=== PATIENT | male | born 1950 | race Caucasian/White ===

== ENCOUNTER 2017-02-17 15:28 | Inpatient (IN) | payer MEDICARE, OTHER ==
[~2017-02-17] VITALS: Ht 167.6 cm; Wt 99.8 kg
[2017-02-17] MEDS ORDERED: VANCOMYCIN 1 GM in IV D5W 250 ML IV ONE ×2 (16:00→18:30)
[2017-02-17] MEDS ORDERED: PIPERACILLIN /TAZOBACTAM 3.375 G in IV D5W 50 ML IV ONE (16:00)
[2017-02-17] MEDS ORDERED: HYDROMORPHONE 1 MG/1 ML DISP.SYRIN IV ONE (16:00)
[2017-02-17] MEDS ORDERED: ONDANSETRON HCL/PF 4 MG/2 ML VIAL IVP ONE (16:00)
[2017-02-17] MEDS ORDERED: IV NS 0.9% 1,000 ML BAG IV ONE ×2 (16:00→18:30)
--- NOTE | 2017-02-17 16:00 | NUR ---
AAOX3, [id number] FROM HOME: UNABLE TO CARE FOR SELF; MULTIPLE SKIN ULCERS/REDNESS;BURN TO L & R HANDS; FAILURE TO THRIVE; GENERALIZED BODY PAIN. RR IS EVEN AND UNLABORED WITH NAD NOTED. SKIN IS WARM AND DRY. DR NICOLAS AT FOR EVAL.
[2017-02-17 16:10] LABS: BASOPHILS % (AUTO) 0.1 % (0.0-2.0); EOSINOPHILS # (AUTO) 0.3 /CMM (0.0-0.7); EOSINOPHILS % (AUTO) 1.9 % (0.0-6.0); HEMATOCRIT 36 % (39-51); HEMOGLOBIN 11.8 g/dL (13.5-17.5); LYMPHOCYTES # (AUTO) 0.8 /CMM (0.8-4.8); LYMPHOCYTES % (AUTO) 4.5 % (20.0-44.0); MEAN CORPUSCULAR HEMOGLOBIN 27 PG (26.0-33.0); MEAN CORPUSCULAR HGB CONC 33 g/dl (31.0-36.0); MEAN CORPUSCULAR VOLUME 82 fL (80-96); MONOCYTES # (AUTO) 0.8 /CMM (0.1-1.30); MONOCYTES % (AUTO) 4.9 % (2.0-12.0); NEUTROPHILS % (AUTO) 88.6 % (43.0-81.0); PLATELET COUNT (AUTO) 233 /CMM (150-450); RDW COEFFICIENT OF VARIATION 17.3 (11.5-15.0); RED BLOOD CELL COUNT(AUTO) 4.43 MIL/uL (4.5-6.0); WHITE BLOOD COUNT (AUTO) 16.9 K/uL (4.3-11.0)
[2017-02-17] MEDS ORDERED: ONDANSETRON HCL/PF 4 MG/2 ML VIAL ONE ×2 (16:17→19:56)
[2017-02-17] MEDS ORDERED: HYDROMORPHONE INJ 2 MG/ML DISP.SYRIN ONE (16:18)
[2017-02-17 16:27] LABS: INR 1.13 (0.87-1.13)
[2017-02-17 16:32] LABS: ALANINE AMINOTRANSFERASE 34 U/L (12-78); ALBUMIN 3.2 g/dL (3.4-5.0); ALKALINE PHOSPHATASE 187 U/L (46-116); ASPARTATE AMINOTRANSFERASE 18 U/L (15-37); BILIRUBIN,DIRECT 0.4 mg/dL (0.0-0.2); BILIRUBIN,TOTAL 1.1 mg/dL (0.2-1.0); CARBON DIOXIDE 18 mmol/L (21-32); CHLORIDE 106 mmol/L (98-107); CREATININE 1.4 mg/dL (0.6-1.3); GLUCOSE 146 mg/dL (74-106); SODIUM SERUM 137 mmol/L (136-145); TOTAL PROTEIN, SERUM 7.3 g/dL (6.4-8.2); UREA NITROGEN, BLOOD 19 mg/dL (7-18)
[2017-02-17 16:37] LABS: TROPONIN I < 0.017 ng/mL (0.00-0.056)
[2017-02-17] MEDS ORDERED: FAMO20TA8 PO (16:51)
[2017-02-17] MEDS ORDERED: IBUP-1955 PO (16:51)
[2017-02-17] MEDS ORDERED: BISA5TAB10 PO (16:51)
[2017-02-17] MEDS ORDERED: DIGO125T PO (16:51)
[2017-02-17] MEDS ORDERED: MUPI22OI2 TP (16:51)
[2017-02-17] MEDS ORDERED: FURO20TA4 PO (16:51)
[2017-02-17] MEDS ORDERED: TAMS-12 PO (16:51)
[2017-02-17] MEDS ORDERED: ALBU18HF2 IH (16:51)
[2017-02-17] MEDS ORDERED: WARF3TAB6 PO (16:51)
[2017-02-17] MEDS ORDERED: HYDR-4077 PO (16:51)
[2017-02-17] MEDS ORDERED: APIX5TAB PO (16:51)
[2017-02-17] MEDS ORDERED: CARV6.252 PO (16:51)
[2017-02-17] MEDS ORDERED: ATOR10TA PO (16:51)
[2017-02-17] MEDS ORDERED: POTA10TA15 PO (16:51)
[2017-02-17] MEDS ORDERED: CLOP75TA15 PO (16:51)
[2017-02-17] MEDS ORDERED: ZOLP10TA6 PO (16:51)
[2017-02-17] MEDS ORDERED: AMLO10TA2 PO (16:52)
[2017-02-17] MEDS ORDERED: ASPI-1169 PO (16:52)
[2017-02-17] MEDS ORDERED: GABA-534 PO (16:52)
[2017-02-17] MEDS ORDERED: LISI40TA4 PO (16:52)
[2017-02-17] MEDS ORDERED: INSU300I SQ (16:52)
[2017-02-17] MEDS ORDERED: ISOS20TA6 PO (16:52)
[2017-02-17] MEDS ORDERED: IPRA3AMP IH (16:52)
[2017-02-17] MEDS ORDERED: GLIM4TAB2 PO (16:52)
[2017-02-17] MEDS ORDERED: ERGO500014 PO (16:52)
--- NOTE | 2017-02-17 17:01 | NUR ---
DR CASSIDY WAS PAGED
[2017-02-17] MEDS ORDERED: CLINDAMYCIN 600 MG in IV D5W 100 ML IV ONE (17:30)
[2017-02-17] MEDS ORDERED: INSULIN REGULAR, HUMAN 100 UNIT/ML 3 ML VIAL SQ PRN (18:30)
[2017-02-17] MEDS ORDERED: DEXTROSE 50%-WATER 50 ML DISP.SYRIN IV PRN (18:30)
[2017-02-17] MEDS ORDERED: ONDANSETRON HCL/PF 4 MG/2 ML VIAL IVP PRN (18:30)
[2017-02-17] MEDS ORDERED: BISACODYL (5 MG) 5 MG TABLET.DR PO PRN (18:30)
[2017-02-17] MEDS: BLOOD SUGAR DIAGNOSTIC 1 EACH STRIP VI SCH ×2 (19:30→22:24)
[2017-02-17] MEDS ORDERED: MORPHINE SULFATE INJ 4 MG/ML DISP.SYRIN ONE (19:57)
[2017-02-17] MEDS: MORPHINE SULFATE INJ 2 MG/ML DISP.SYRIN IV PRN (20:02)
--- NOTE | 2017-02-17 20:05 | NUR ---
PATIENT SCREAMING CAUSE OF PAIN AND SAID HIS PAIN IS 10/10. VSS. MEDICATED PATIENT AT THIS TIME WITH MORPHINE AND ZOFRAN ORDERED. COMFORT MEASURES RENDERED. WILL CONTINUE TO MONITOR.
[2017-02-17] MEDS ORDERED: PANTOPRAZOLE 40 MG VIAL ONE (20:54)
[2017-02-17] MEDS ORDERED: CLINDAMYCIN 900 MG in IV D5W 100 ML IV SCH (21:00)
[2017-02-17] MEDS: PANTOPRAZOLE 40 MG VIAL IV SCH (22:00)
[2017-02-17] MEDS ORDERED: INSULIN REGULAR, HUMAN 100 UNIT/ML 10 ML VIAL ONE (22:26)
[2017-02-17] MEDS: *INSULIN REGULAR(HUMULIN R)HUM 100 UNIT/ML VIAL SQ PRN (22:49)
--- NOTE | 2017-02-17 23:11 | NUR ---
SPOKE WITH DR ALMANZAR AND REPORTED STATUS OF PATIENT BEING AGITATED/ANXIOUS. PATIENT IS RESTLESS, SCREAMING AND CRYING AND TELLING ME THAT HE IS "AFRAID TO . MY JUST FEW WEEKS AGO." RECEIVED ORDERS FROM DR ALMANZAR, WILL CARRY OUT.
--- NOTE | 2017-02-17 23:13 | NUR ---
NONADMIN VANCO PER DR ALMANZAR SINCE VANCO 1GM WAS GIVEN [address] ALMANZAR SAID, LET PHARMACY RESCHEDULE IT.
[2017-02-17] MEDS ORDERED: ZOLPIDEM TARTRATE 10 MG TABLET ONE (23:14)
[2017-02-17] MEDS: ZOLPIDEM TARTRATE 5 MG TABLET PO PRN (23:19)
[2017-02-18] MEDS ORDERED: MORPHINE SULFATE INJ 4 MG/ML DISP.SYRIN ONE ×2 (01:06→11:51)
[2017-02-18] MEDS: MORPHINE SULFATE INJ 2 MG/ML DISP.SYRIN IV PRN ×2 (01:10→12:01)
[2017-02-18] MEDS ORDERED: CLINDAMYCIN 900 MG/6 ML VIAL ONE (01:19)
[2017-02-18] MEDS: ALBUTEROL SULFATE 8 GM HFA.AER.AD IH SCH ×2 (01:20→07:13)
[2017-02-18] MEDS ORDERED: LORAZEPAM 1 MG TABLET ONE ×2 (02:08→11:50)
[2017-02-18] MEDS: LORAZEPAM 1 MG TABLET PO PRN ×3 (02:25→21:36)
[2017-02-18 06:26] LABS: BASOPHILS % (AUTO) 0.1 % (0.0-2.0); EOSINOPHILS # (AUTO) 0.3 /CMM (0.0-0.7); EOSINOPHILS % (AUTO) 1.3 % (0.0-6.0); HEMATOCRIT 33 % (39-51); LYMPHOCYTES # (AUTO) 0.9 /CMM (0.8-4.8); LYMPHOCYTES % (AUTO) 4.1 % (20.0-44.0); MEAN CORPUSCULAR HEMOGLOBIN 28 PG (26.0-33.0); MEAN CORPUSCULAR HGB CONC 33 g/dl (31.0-36.0); MEAN CORPUSCULAR VOLUME 83 fL (80-96); MONOCYTES # (AUTO) 0.7 /CMM (0.1-1.30); NEUTROPHILS # (AUTO) 19.9 /CMM (1.8-8.9); NEUTROPHILS % (AUTO) 91.5 % (43.0-81.0); PLATELET COUNT (AUTO) 208 /CMM (150-450); RDW COEFFICIENT OF VARIATION 18.8 (11.5-15.0); RED BLOOD CELL COUNT(AUTO) 3.98 MIL/uL (4.5-6.0); WHITE BLOOD COUNT (AUTO) 21.7 K/uL (4.3-11.0)
[2017-02-18 06:45] LABS: BILIRUBIN,TOTAL 1.1 mg/dL (0.2-1.0); CALCIUM, SERUM 8.5 mg/dL (8.5-10.1); CREATININE 1.6 mg/dL (0.6-1.3); POTASSIUM 4.1 mmol/L (3.5-5.1)
[2017-02-18 06:54] LABS: CREATINE KINASE MB 4.7 ng/mL (0-3.6)
--- NOTE | 2017-02-18 06:58 | NUR ---
PATIENT REMAINED ALERT AND RESPONSIVE. VSS. COMFORT MEASURES RENDERED. PAIN MANAGEMENT IN PLACE. PATIENT WAS ABLE TO SLEEP FOR 4 HOURS. ALL NEEDS ATTENDED.
[2017-02-18 07:07] LABS: INR 1.19 (0.87-1.13)
[2017-02-18] MEDS: BLOOD SUGAR DIAGNOSTIC 1 EACH STRIP VI SCH ×4 (07:14→21:32)
--- NOTE | 2017-02-18 07:29 | NUR ---
REPORT GIVEN TO INDIRA LARSON FOR RAGHAVENDRA.
[2017-02-18] MEDS ORDERED: CLINDAMYCIN 900 MG in IV D5W 100 ML IV SCH (10:00)
--- NOTE | 2017-02-18 10:06 | NUR ---
DR CASSIDY AT , MADE AWARE RE: PLAVIX AND ELIQUIS WITH NEW ORDER TO CONT. MEDICATION FOR NOW AND F/U WITH DR. BECKER AFTER CONSULT. NPO STATUS EXCEPT MEDS, MAY [facility]/REG. DIET IF CLEARED BY CARDIO. PRIMARY NURSE MADE AWARE.
[2017-02-18] MEDS ORDERED: CARVEDILOL 6.25 MG TABLET ONE (10:27)
[2017-02-18] MEDS ORDERED: CLOPIDOGREL BISULFATE 75 MG TABLET ONE (10:27)
[2017-02-18] MEDS: PANTOPRAZOLE 40 MG VIAL IV SCH (10:55)
[2017-02-18] MEDS: ATORVASTATIN 10 MG TABLET PO SCH (10:58)
[2017-02-18] MEDS: CARVEDILOL 6.25 MG TABLET PO SCH ×2 (10:58→17:44)
[2017-02-18] MEDS ORDERED: VANCOMYCIN 1.25 GM in IV D5W 500 ML IV SCH ×2 (11:00→16:00)
[2017-02-18] MEDS: APIXABAN 5 MG TABLET PO SCH (11:00)
[2017-02-18] MEDS: ASPIRIN 81 MG TAB.CHEW PO SCH (11:02)
[2017-02-18] MEDS: ISOSORBIDE MONONITRATE 20 MG TABLET PO SCH ×2 (11:03→17:43)
[2017-02-18] MEDS: CLOPIDOGREL BISULFATE 75 MG TABLET PO SCH (11:03)
[2017-02-18 11:11] LABS: THYROID STIMULATING HORMONE 7.021 uIU/mL (0.358-3.74)
[2017-02-18] MEDS ORDERED: FEE PK DOSING 1 MIN EA MC ONE (14:05)
--- NOTE | 2017-02-18 14:57 | NUR ---
REPORT GIVEN TO NEO QUEZADA FOR RAGHAVENDRA 117-2
--- NOTE | 2017-02-18 15:00 | NUR ---
COMMERCIAL REAL ESTATE ASSOCIATEREPORTING CONSULTANT NOTES RECEIVED PT FROM ER NURSE PRIOR TO REPORT GIVEN. PT IS A/O X2. NO SOB AT THIS TIME. BREATHING IS EVEN AND UNLABORED. PT STATES THAT HE IS IN PAIN. WILL ADMINISTER PRN MEDICATION WHEN DUE. COLOSTOMY NOTED. BA EMPTY AT THIS TIME. MULTIPLE INJURIES NOTED ON PT'S UPPER AND LOWER EXTREMITIES. PT IS REFUSING ADMISSION PICTURES AT THIS TIME. HE IS ALSO REFUSING TELE MONITORING LEADS. DR. CASSIDY NOTIFIED AND STATES "OK". NO ORDERS OF NOW. BED IN LOW LOCKED POSITION, SIDE RAILS UP X3, CALL LIGHT WITHIN REACH. WILL CONTINUE TO MONITOR
[2017-02-18] MEDS: DIGOXIN 0.125 MG TABLET PO SCH (16:20)
[2017-02-18] MEDS: MORPHINE SULFATE INJ 4 MG/ML DISP.SYRIN IV PRN ×2 (16:20→21:36)
[2017-02-18] MEDS: *INSULIN REGULAR(HUMULIN R)HUM 100 UNIT/ML VIAL SQ PRN (17:41)
[2017-02-18] MEDS: FUROSEMIDE 40 MG/4 ML VIAL IV SCH (17:43)
[2017-02-18] MEDS: FERROUS SULFATE (325 MG) 325 MG/TAB TABLET PO SCH (17:43)
[2017-02-18] MEDS: ACETAMINOPHEN 325 MG TABLET PO PRN (17:54)
[2017-02-18] MEDS: ALBUTEROL FS 2.5 MG/3 ML VIAL.NEB NEB SCH (19:30)
[2017-02-18 20:00] VITALS: BP_SYST 105; BP_SYST 80; BP_DIAS 50; BP_DIAS 60
--- NOTE | 2017-02-18 20:00 | NUR ---
MACHINE VENEER REPAIRER NOTES PER RESPIRATORY THERAPIST, PT IS REFUSING SCHEDULED BREATHING TX. RESPIRATORY THERAPIST STATES THAT HE WILL PUT "PT REFUSED" IN EMAR
--- NOTE | 2017-02-18 21:08 | NUR ---
TRENCH SHOVEL OPERATOR NOTES PER RN SUPERVISOR WELDING EQUIPMENT REPAIRER, PT WAS DOWNGRADED TO TELE THIS MORNING PRIOR TO ADMISSION DESPITE THE ADMIT TO ICU ORDER.
[2017-02-18] MEDS: TAMSULOSIN 0.4 MG CAP.SR.24H PO SCH (21:35)
[2017-02-18] MEDS: CEFAZOLIN 1 GM in IV NS 0.9% 50 ML IV SCH (21:43)
--- NOTE | 2017-02-18 22:36 | NUR ---
ASSISTANT TO THE CEO CLOSING NOTES PT REMAINS STABLE SINCE ADMISSION. HE WAS ABLE TO VERBALIZE NEEDS. WOUND AND SKIN CARE RENDERED. IV REMAINS PATENT AND INTACT. COLOSTOMY BAG EMPTIED AND CHANGED. VITALS STABLE AT THIS TIME. ALL NEEDS MET DURING SHIFT AND ORDERS CARRIED OUT ACCORDINGLY. WILL ENDORSE TO NIGHTSHIFT NURSE FOR RAGHAVENDRA
--- NOTE | 2017-02-18 22:54 | NUR ---
POT RUNNER NOTES INFORMED DR. ALMANZAR PATIENT REFUSED TELE BOX DESPITE EXPLANATION THE NEED FOR THE TELE MONITOR. NNO. WILL CONTINUE TO MONITOR.
[2017-02-19] VITALS: BP 118/66
[2017-02-19] MEDS: ALBUTEROL FS 2.5 MG/3 ML VIAL.NEB NEB SCH ×4 (01:30→19:30)
[2017-02-19 04:00] VITALS: BP 119/70
[2017-02-19] MEDS: MORPHINE SULFATE INJ 4 MG/ML DISP.SYRIN IV PRN ×5 (04:04→22:22)
[2017-02-19] MEDS: CEFAZOLIN 1 GM in IV NS 0.9% 50 ML IV SCH ×3 (05:39→21:16)
[2017-02-19 06:54] LABS: EOSINOPHILS # (AUTO) 0.3 /CMM (0.0-0.7); EOSINOPHILS % (AUTO) 1.7 % (0.0-6.0); HEMATOCRIT 32 % (39-51); HEMOGLOBIN 10.4 g/dL (13.5-17.5); LYMPHOCYTES # (AUTO) 0.4 /CMM (0.8-4.8); LYMPHOCYTES % (AUTO) 1.9 % (20.0-44.0); MEAN CORPUSCULAR HEMOGLOBIN 27 PG (26.0-33.0); MEAN CORPUSCULAR HGB CONC 33 g/dl (31.0-36.0); MEAN CORPUSCULAR VOLUME 83 fL (80-96); MONOCYTES # (AUTO) 0.6 /CMM (0.1-1.30); MONOCYTES % (AUTO) 3.2 % (2.0-12.0); NEUTROPHILS # (AUTO) 18.7 /CMM (1.8-8.9); NEUTROPHILS % (AUTO) 93.2 % (43.0-81.0); PLATELET COUNT (AUTO) 182 /CMM (150-450); RED BLOOD CELL COUNT(AUTO) 3.82 MIL/uL (4.5-6.0)
[2017-02-19 07:01] LABS: CALCIUM, SERUM 8.3 mg/dL (8.5-10.1); CREATININE 1.8 mg/dL (0.6-1.3); MAGNESIUM 1.9 mg/dL (1.8-2.4); PHOSPHORUS 3.6 mg/dL (2.5-4.9); POTASSIUM 3.6 mmol/L (3.5-5.1)
[2017-02-19 08:00] VITALS: BP 104/60
--- NOTE | 2017-02-19 08:00 | NUR ---
GRAPHICS SOFTWARE ENGINEER NOTES RECEIVED PT ON BED SLEEPING WITH EPISODES OF CONFUSION. WITH COLOSTOMY BAD NO SIGN OF REDNESS OR INFECTION. IV ACCESS LAC 20G NO SIGN OF PAIN OR INFILTRATION. HEAD OF BED ELEVATED. SIDE RAILS UP. BED ALARM IS ON. WILL CONTINUE TO MONITOR PT CLOSELY.
[2017-02-19] MEDS: BLOOD SUGAR DIAGNOSTIC 1 EACH STRIP VI SCH ×4 (08:08→21:16)
[2017-02-19] MEDS: *INSULIN REGULAR(HUMULIN R)HUM 100 UNIT/ML VIAL SQ PRN ×3 (08:10→21:20)
--- NOTE | 2017-02-19 08:25 | NUR ---
RT PATIENT REFUSED TX AT THIS TIME. EXPLAINED RISKS AND BENEFITS. NO SOB NOTED.
[2017-02-19] MEDS: CLOPIDOGREL BISULFATE 75 MG TABLET PO SCH (09:09)
[2017-02-19] MEDS: ISOSORBIDE MONONITRATE 20 MG TABLET PO SCH ×2 (09:10→16:34)
[2017-02-19] MEDS: CARVEDILOL 6.25 MG TABLET PO SCH ×2 (09:10→16:35)
[2017-02-19] MEDS: ATORVASTATIN 10 MG TABLET PO SCH (09:10)
[2017-02-19] MEDS: FUROSEMIDE 40 MG/4 ML VIAL IV SCH ×2 (09:11→16:34)
[2017-02-19] MEDS: ASPIRIN 81 MG TAB.CHEW PO SCH (09:11)
[2017-02-19] MEDS: PANTOPRAZOLE 40 MG VIAL IV SCH (09:11)
[2017-02-19] MEDS: FERROUS SULFATE (325 MG) 325 MG/TAB TABLET PO SCH (09:11)
[2017-02-19] MEDS: APIXABAN 5 MG TABLET PO SCH (09:12)
--- NOTE | 2017-02-19 12:18 | NUR ---
PT. REFUSED FOR CXR, INFORMED DR. YANEZ.
[2017-02-19] MEDS: DIGOXIN 0.125 MG TABLET PO SCH (12:43)
--- NOTE | 2017-02-19 14:00 | NUR ---
RT PATIENT REFUSED TX AT THIS TIME. PATIENT REMOVES NASAL CANNULA AT OWN DISCRETION. EXPLAINED RISKS AND BENEFITS. NO SOB NOTED.
[2017-02-19] MEDS: SOD FERRIC GLUC 125 MG in IV NS 0.9% 100 ML IV SCH (14:50)
--- NOTE | 2017-02-19 15:22 | NUR ---
MS RN NOTES RADIOLOGY CALLED REGARDING FOR CLOT ON THE RIGHT FEMORAL VEIN. NOTIFIED DR CASSIDY REGARDING THE IMAGING RESULTS.
[2017-02-19 16:00] VITALS: BP 110/69
[2017-02-19] MEDS: ACETAMINOPHEN 325 MG TABLET PO PRN (16:34)
[2017-02-19 20:00] VITALS: BP 143/56
[2017-02-19] MEDS: TAMSULOSIN 0.4 MG CAP.SR.24H PO SCH (21:16)
--- NOTE | 2017-02-19 22:16 | NUR ---
MS RN NOTES ENDORSED TO THE PM NURSE. DUE MEDS GIVEN. PROVIDED COMFORT. NO CHANGE OF CONDITION NOTED DURING THE SHIFT.
--- NOTE | 2017-02-19 23:00 | NUR ---
RN INITIAL NOTES RECEIVED PT IN BED SHOUTING WITH EPISODES OF CONFUSION. WITH COLOSTOMY, NO SIGN OF REDNESS OR INFECTION. IV ACCESS LAC 20G NO SIGN OF PAIN OR INFILTRATION. HEAD OF BED ELEVATED. SIDE RAILS UP. BED ALARM IS ON. WILL CONTINUE TO MONITOR PT CLOSELY.
[2017-02-20] VITALS: BP 143/56
[2017-02-20] MEDS: ZOLPIDEM TARTRATE 5 MG TABLET PO PRN ×2 (00:42→21:50)
[2017-02-20] MEDS: ALBUTEROL FS 2.5 MG/3 ML VIAL.NEB NEB SCH ×4 (01:30→13:05)
[2017-02-20 04:00] VITALS: BP 120/74
[2017-02-20] MEDS: CEFAZOLIN 1 GM in IV NS 0.9% 50 ML IV SCH ×3 (04:47→21:51)
--- NOTE | 2017-02-20 06:55 | NUR ---
RN CLOSING NOTES PT IN BED. COLOSTOMY BAG WAS CHANGED , NO SIGN OF REDNESS OR INFECTION. IV ACCESS LAC 20G NO SIGN OF PAIN OR INFILTRATION. HEAD OF BED ELEVATED. SIDE RAILS UP. BED ALARM IS ON.CALL LIGHT WITH IN REACH. WILL ENDORSE TO AM RN.
[2017-02-20 07:52] LABS: EOSINOPHILS # (AUTO) 0.4 /CMM (0.0-0.7); EOSINOPHILS % (AUTO) 1.8 % (0.0-6.0); HEMATOCRIT 31 % (39-51); HEMOGLOBIN 10.2 g/dL (13.5-17.5); LYMPHOCYTES # (AUTO) 0.4 /CMM (0.8-4.8); LYMPHOCYTES % (AUTO) 1.7 % (20.0-44.0); MEAN CORPUSCULAR HEMOGLOBIN 27 PG (26.0-33.0); MEAN CORPUSCULAR HGB CONC 33 g/dl (31.0-36.0); MEAN CORPUSCULAR VOLUME 83 fL (80-96); MONOCYTES # (AUTO) 0.9 /CMM (0.1-1.30); MONOCYTES % (AUTO) 3.9 % (2.0-12.0); NEUTROPHILS # (AUTO) 21.1 /CMM (1.8-8.9); NEUTROPHILS % (AUTO) 92.6 % (43.0-81.0); PLATELET COUNT (AUTO) 161 /CMM (150-450); RDW COEFFICIENT OF VARIATION 19.5 (11.5-15.0); RED BLOOD CELL COUNT(AUTO) 3.73 MIL/uL (4.5-6.0); WHITE BLOOD COUNT (AUTO) 22.7 K/uL (4.3-11.0)
[2017-02-20] MEDS: BLOOD SUGAR DIAGNOSTIC 1 EACH STRIP VI SCH ×4 (07:54→22:37)
[2017-02-20 08:00] VITALS: BP 126/64
--- NOTE | 2017-02-20 08:00 | NUR ---
MS1/RN AM SHIFT INITIAL NOTES RECEIVED PT AWAKE SITTING IN BED, PT A/O X 2-3, COMPLAINT OF GENERALIZED PAIN RATED 9/10. ON 2L O2 VIA N/C SATURATING @ 98%, LUNG SOUNDS CLEAR. IV SITE FLUSHED, PATENT WITH NO S/S OF INFECTION, SL. PT'S RIGHT HAND DRESSING INTACT, PER PT HE BURNED HIS HAND WHEN HE WAS COOKING AT HOME. BS CHECKED, RESULT 167, PT TO BE GIVEN 3 UNITS OF REGULAR INSULIN SC, NO S/S OF HYPERGLYCEMIA. SCHEDULED AM MEDS TO BE GIVEN. CL WITHIN REACHED AND SAFETY MAINTAINED. ON GOING MONITORING.
--- NOTE | 2017-02-20 08:08 | NUR ---
RT PATIENT IS AWAKE/ALERT. PATIENT REFUSED TX AND 02 AT THIS TIME. EXPLAINED RISKS AND BENEFITS. NO SOB NOTED.
[2017-02-20] MEDS: APIXABAN 5 MG TABLET PO SCH (08:26)
[2017-02-20] MEDS: ATORVASTATIN 10 MG TABLET PO SCH (08:27)
[2017-02-20] MEDS: ASPIRIN 81 MG TAB.CHEW PO SCH (08:27)
[2017-02-20] MEDS: ISOSORBIDE MONONITRATE 20 MG TABLET PO SCH ×2 (08:27→16:50)
[2017-02-20] MEDS: FUROSEMIDE 40 MG/4 ML VIAL IV SCH (08:28)
[2017-02-20] MEDS: CARVEDILOL 6.25 MG TABLET PO SCH ×2 (08:28→16:50)
[2017-02-20] MEDS: MORPHINE SULFATE INJ 4 MG/ML DISP.SYRIN IV PRN (08:29)
[2017-02-20] MEDS: PANTOPRAZOLE 40 MG VIAL IV SCH (08:29)
[2017-02-20] MEDS: CLOPIDOGREL BISULFATE 75 MG TABLET PO SCH (08:31)
[2017-02-20] MEDS: *INSULIN REGULAR(HUMULIN R)HUM 100 UNIT/ML VIAL SQ PRN ×3 (08:32→21:56)
[2017-02-20 08:37] LABS: CALCIUM, SERUM 7.9 mg/dL (8.5-10.1); CREATININE 1.8 mg/dL (0.6-1.3); MAGNESIUM 1.7 mg/dL (1.8-2.4); PHOSPHORUS 3.1 mg/dL (2.5-4.9); POTASSIUM 3.6 mmol/L (3.5-5.1)
[2017-02-20] MEDS ORDERED: Magnesium 1GM/D5W 100ML PREMIX 100 ML IV SCH (11:15)
--- NOTE | 2017-02-20 11:30 | NUR ---
MS1/AGRICULTURE WORKER CONSULT PT SEEN & EXAMINED BY KAROLINA BAINS FOR WOUND CARE. NO NEW ORDERS RECEIVED AT THIS TIME.
[2017-02-20] MEDS: HYDROMORPHONE INJ 2 MG/ML DISP.SYRIN IV PRN ×2 (12:19→20:01)
[2017-02-20] MEDS: DIGOXIN 0.125 MG TABLET PO SCH (12:20)
--- NOTE | 2017-02-20 13:05 | NUR ---
RT PATIENT REFUSED TX AT THIS TIME. PATIENT ON NASAL CANNULA @ 28%. EXPLAINED RISKS AND BENEFITS. PATIENT STABLE.
[2017-02-20 13:24] LABS: BAND % (MANUAL) 4 % (0.0-5.0); LYMPHOCYTES % (MANUAL) 3 % (16-48); MONOCYTES % (MANUAL) 5 % (0-11.0); NEUTROPHILS % (MANUAL) 88 (42-76)
[2017-02-20] MEDS: SOD FERRIC GLUC 125 MG in IV NS 0.9% 100 ML IV SCH (14:37)
[2017-02-20] MEDS ORDERED: Z GUARD REMEDY 4 OZ OINT TP PRN (15:30)
[2017-02-20 16:00] VITALS: BP 122/66
--- NOTE | 2017-02-20 19:31 | NUR ---
MS1/RN AM SHIFT END NOTES NO ACUTE CHANGE OF CONDITION NOTED DURING THE SHIFT. ALL NEEDS MET. PT ENDORSED TO PM NURSE TO CONTINUE CARE. CL WITHIN REACHED AND SAFETY MAINTAINED.
[2017-02-20 20:00] VITALS: BP 104/53
[2017-02-20] MEDS: CADEXOMER IODINE 40 GM TUBE TP SCH (21:00)
[2017-02-20] MEDS: NEOMY SULF/BACITRAC ZN/POLY 15 GM TUBE TP SCH (21:49)
[2017-02-20] MEDS: LORAZEPAM 1 MG TABLET PO PRN (21:49)
[2017-02-20] MEDS: TAMSULOSIN 0.4 MG CAP.SR.24H PO SCH (21:50)
[2017-02-21] MEDS: ALBUTEROL FS 2.5 MG/3 ML VIAL.NEB NEB SCH ×4 (00:53→19:30)
[2017-02-21] MEDS: HYDROMORPHONE INJ 2 MG/ML DISP.SYRIN IV PRN ×4 (03:47→22:41)
[2017-02-21 04:00] VITALS: BP 104/52
[2017-02-21] MEDS: CEFAZOLIN 1 GM in IV NS 0.9% 50 ML IV SCH ×2 (05:45→12:04)
--- NOTE | 2017-02-21 07:30 | NUR ---
MS RN OPENING RECEIVED PATIENT A.OX2-3 PERIODS OF CONFUSION AND FORGETFULNESS. PATIENT YELLING OUT OF ROOM FOR BREAKFAST. NOTIFIED WHEN TRAYS COME. PATIENT CONTINUES TO YELL AGAIN ONCE I LEAVE THE ROOM AND REMINDED PATIENT WHAT TIME BREAKFAST TRAYS COME. PATIENT COLOSTOMY BAG FULL; WILL CHANGE. PATIENT DENIES SOB, DIFFICULTY BREATHING AND STATES PAIN PRESENT "ALL OVER" AND WANTS DILAUDID. ADVISED PATIENT WHEN PAIN MEDICATION DUE. WHEN I LEAVE THE ROOM AND ENTER A FEW MINUTES LATER PATIENT IS SLEEPING COMFORTABLY NO S/S PAIN. PATIENT TOOK GOWN OFF AND THREW LINENS ON FLOOR STATING HE WAS WARM. PATIENT APPEARS STABLE AT THIS TIME. WILL ROUND PRN NEEDED. BED LOWERED AND LOCKED, RAILS UPX3 FOR SAFETY AND BED ALARM ON. PATIENT ATTEMPTED TO GET OUT OF BED PER RN LAST NIGHT, NOTIFIED SOON STRAW HAT MACHINE OPERATOR PATIENT HIGH ACUITY AND POSSIBLY NEEDS SITTER. WILL KEEP CLOSE EYE ON PATIENT. EDUCATED ON FALL RISKS AND PRECAUTIONS. ALL NEEDS IN REACH. AND ALL NEEDS ASSESSED.
[2017-02-21 07:52] LABS: EOSINOPHILS % (AUTO) 0.1 % (0.0-6.0); HEMATOCRIT 32 % (39-51); HEMOGLOBIN 10.4 g/dL (13.5-17.5); LYMPHOCYTES # (AUTO) 0.3 /CMM (0.8-4.8); LYMPHOCYTES % (AUTO) 1.1 % (20.0-44.0); MEAN CORPUSCULAR HEMOGLOBIN 27 PG (26.0-33.0); MEAN CORPUSCULAR HGB CONC 33 g/dl (31.0-36.0); MEAN CORPUSCULAR VOLUME 83 fL (80-96); MONOCYTES # (AUTO) 0.6 /CMM (0.1-1.30); MONOCYTES % (AUTO) 2.4 % (2.0-12.0); NEUTROPHILS # (AUTO) 26.1 /CMM (1.8-8.9); NEUTROPHILS % (AUTO) 96.4 % (43.0-81.0); PLATELET COUNT (AUTO) 167 /CMM (150-450); RDW COEFFICIENT OF VARIATION 19.3 (11.5-15.0); RED BLOOD CELL COUNT(AUTO) 3.81 MIL/uL (4.5-6.0); WHITE BLOOD COUNT (AUTO) 27.1 K/uL (4.3-11.0)
[2017-02-21 08:00] VITALS: BP 119/68
[2017-02-21 08:14] LABS: CALCIUM, SERUM 8.1 mg/dL (8.5-10.1); CREATININE 1.7 mg/dL (0.6-1.3); MAGNESIUM 1.8 mg/dL (1.8-2.4); PHOSPHORUS 3.2 mg/dL (2.5-4.9); POTASSIUM 3.5 mmol/L (3.5-5.1)
[2017-02-21 08:16] LABS: PREALBUMIN 9.1 MG/DL (18.0-35.7)
--- NOTE | 2017-02-21 08:29 | NUR ---
WOUND CARE CONSULT WOUND CARE RECEIVED WOUND CONSULT. WOUND CARE WILL DEFER CONSULT AND ALL TREATMENT PLANS TO SURGICAL TEAM AT THIS TIME. PATIENT WITH FLORINA AT 13, ALL PRESSURE ULCER PREVENTION MEASURES NOTED TO BE IN PLACE. PRESSURE ULCER STAGING DONE BY SURGICAL TEAM.
[2017-02-21] MEDS: PANTOPRAZOLE 40 MG VIAL IV SCH (08:49)
[2017-02-21] MEDS: BLOOD SUGAR DIAGNOSTIC 1 EACH STRIP VI SCH ×4 (08:49→21:59)
[2017-02-21] MEDS: CADEXOMER IODINE 40 GM TUBE TP SCH ×4 (08:50→21:37)
[2017-02-21] MEDS: CLOPIDOGREL BISULFATE 75 MG TABLET PO SCH (08:51)
[2017-02-21] MEDS: ATORVASTATIN 10 MG TABLET PO SCH (08:52)
[2017-02-21] MEDS: ASPIRIN 81 MG TAB.CHEW PO SCH (08:52)
[2017-02-21] MEDS: CARVEDILOL 6.25 MG TABLET PO SCH ×2 (08:52→16:58)
[2017-02-21] MEDS: NEOMY SULF/BACITRAC ZN/POLY 15 GM TUBE TP SCH ×3 (08:52→21:38)
[2017-02-21] MEDS: ISOSORBIDE MONONITRATE 20 MG TABLET PO SCH ×2 (08:52→16:57)
[2017-02-21] MEDS: APIXABAN 5 MG TABLET PO SCH (08:54)
--- NOTE | 2017-02-21 09:39 | NUR ---
MS RN NOTES CONFIRMED WITH DR CASSIDY DISCONTINUE CT GUIDED THORACENTESIS AND ORDER US GUIDED THORACENTESIS
--- NOTE | 2017-02-21 09:43 | NUR ---
MS RN NOTES CALLED PATIENT SON ANIL AND LEFT MESSAGE [phone] TO GET CONSENT FOR US GUIDED THORACENTESIS. CALLED [facility] PATIENT OTHER SON AT [phone] AND LEFT A MESSAGE WELL.
--- NOTE | 2017-02-21 09:48 | NUR ---
MS RN NOTES SPOKE WITH [facility] AND NOTIFIED WE ARE OUT OF IODOSORB. THEY WILL PROVIDE
[2017-02-21 10:32] LABS: BAND % (MANUAL) 7 % (0.0-5.0); EOSINOPHILS % (MANUAL) 1 % (0-4); LYMPHOCYTES % (MANUAL) 4 % (16-48); MONOCYTES % (MANUAL) 2 % (0-11.0); NEUTROPHILS % (MANUAL) 86 (42-76)
--- NOTE | 2017-02-21 11:11 | NUR ---
PER NEO JENKINS, PATIENT WAS GIVEN ELIQUIS 5 MG @ 8:50 AM. TO BE DONE 02/22/17 IN THE AFTERNOON. NO CONSENT SIGNED YET.
[2017-02-21] MEDS: DIGOXIN 0.125 MG TABLET PO SCH (12:05)
--- NOTE | 2017-02-21 12:33 | NUR ---
MS RN NOTES SPOKE TO [facility] AGAIN TO HAVE IODOSORB BROUGHT
[2017-02-21] MEDS: SOD FERRIC GLUC 125 MG in IV NS 0.9% 100 ML IV SCH (14:52)
--- NOTE | 2017-02-21 15:15 | NUR ---
MS RN NOTE CALLED DR MOREIRA AND DR KLEIN OFFICE TO NOTIFY OF CONSULT
--- NOTE | 2017-02-21 15:48 | NUR ---
MS RN NOTES PATIENT REPOSITIONED Q2H HOWEVER IS TURNING SELF BACK TO PREFERRED POSITION AND NOT OFFLOADING. EDUCATING PATIENT ON SKIN CARE AND OFFLOADING/TURNING
[2017-02-21 16:00] VITALS: BP 121/65
[2017-02-21] MEDS: RENAL NOVASOURCE (8OZ) 1 EA BOX PO SCH (17:00)
--- NOTE | 2017-02-21 19:10 | NUR ---
MS RN CLOSING ALL DUE MEDS GIVEN AND ALL NEEDS MET. NEEDS IN REACH. BED LOWERED AND LOCKED, RAILS UPX3 FOR SAFETY. PATIENT CALL LIGHT IN REACH. STABLE. CARE ENDORSED TO RN FOR RAGHAVENDRA
[2017-02-21] MEDS ORDERED: FEE PK DOSING 1 MIN EA MC ONE (19:31)
--- NOTE | 2017-02-21 19:52 | NUR ---
PT REFUSED RESP TX AT THIS TIME. NO S/S OF SOB NOTED Addendum: 02/21/17 at 2 by JOYCELYN JACOBSON RT Amended: Links added.
[2017-02-21 20:00] VITALS: BP 115/59
[2017-02-21] MEDS: MEROPENEM 500 MG in IV NS 0.9% 50 ML IV SCH (20:00)
[2017-02-21] MEDS: VANCOMYCIN HCL 125 MG/2.5 ML ORAL.SUSP PO SCH (21:34)
[2017-02-21] MEDS: TAMSULOSIN 0.4 MG CAP.SR.24H PO SCH (21:38)
[2017-02-21] MEDS: *INSULIN REGULAR(HUMULIN R)HUM 100 UNIT/ML VIAL SQ PRN (21:54)
[2017-02-21] MEDS: VANCOMYCIN 1.25 GM in IV D5W 500 ML IV SCH (21:57)
--- NOTE | 2017-02-21 22:00 | NUR ---
RN NOTES, RECEIVED RESULTS FROM RADIOLOGY REGARDING US FOR LEFT LOWER EXTREMITY, WHICH IMPRESSION SHOWS OCCLUDED LEFT POSTERIOR TIBIAL ARTERY, REPORT RESULTS TO SUPERINTENDENT HOUSE DR ALMANZAR, AND PER MD NO NEW ORDERS AT THIS TIME AND F/U WITH PRIMARY DOCTOR IN THE MORNING. WILL CONTINUE TO MONITOR CLOSELY, AT THIS TIME, PATIENT ALERT AND ORIENTED, NO S/S OF ACUTE DISTRESS, BREATHING EVEN AND UNLABORED, NO SOB, ALL NEEDS PROVIDED AND MEDICATIONS ADMINISTERED ORDERED.
[2017-02-21] MEDS: ZOLPIDEM TARTRATE 5 MG TABLET PO PRN (22:42)
[2017-02-22] MEDS: ALBUTEROL FS 2.5 MG/3 ML VIAL.NEB NEB SCH ×4 (01:12→19:30)
[2017-02-22 04:00] VITALS: BP 125/79
[2017-02-22] MEDS: HYDROMORPHONE INJ 2 MG/ML DISP.SYRIN IV PRN ×3 (05:07→17:34)
[2017-02-22] MEDS: BLOOD SUGAR DIAGNOSTIC 1 EACH STRIP VI SCH ×4 (07:30→22:28)
[2017-02-22 07:35] LABS: HEMATOCRIT 33 % (39-51); HEMOGLOBIN 10.6 g/dL (13.5-17.5); LYMPHOCYTES # (AUTO) 0.3 /CMM (0.8-4.8); MEAN CORPUSCULAR HEMOGLOBIN 27 PG (26.0-33.0); MEAN CORPUSCULAR HGB CONC 33 g/dl (31.0-36.0); MEAN CORPUSCULAR VOLUME 83 fL (80-96); MONOCYTES % (AUTO) 3.5 % (2.0-12.0); NEUTROPHILS # (AUTO) 27.3 /CMM (1.8-8.9); NEUTROPHILS % (AUTO) 95.5 % (43.0-81.0); PLATELET COUNT (AUTO) 170 /CMM (150-450); RDW COEFFICIENT OF VARIATION 19.6 (11.5-15.0); RED BLOOD CELL COUNT(AUTO) 3.94 MIL/uL (4.5-6.0); WHITE BLOOD COUNT (AUTO) 28.6 K/uL (4.3-11.0)
[2017-02-22 07:37] LABS: CALCIUM, SERUM 8.1 mg/dL (8.5-10.1); CREATININE 1.6 mg/dL (0.6-1.3); POTASSIUM 3.5 mmol/L (3.5-5.1)
[2017-02-22 07:55] LABS: BAND % (MANUAL) 8 % (0.0-5.0); LYMPHOCYTES % (MANUAL) 1 % (16-48); MONOCYTES % (MANUAL) 3 % (0-11.0); NEUTROPHILS % (MANUAL) 88 (42-76)
[2017-02-22 08:00] VITALS: BP 127/51
[2017-02-22] MEDS: RENAL NOVASOURCE (8OZ) 1 EA BOX PO SCH ×2 (08:00→17:00)
--- NOTE | 2017-02-22 08:05 | NUR ---
RN OPENING NOTES RECEIVED PATIENT ALERT AND ORIENTED X2-3 LEFT AC 20 G INTACT & PATENT W/ DRESSING CLEAN DRY AND INTACT HL. NO SOB NOTED AT THIS TIME PATIENT SAFETY MEASURES IN PLACE W/ SIDE RAILS UP, BED LOCKED & IN LOWEST POSITION & BED ALARM ON. RN WILL CONTINUE TO MONITOR THROUGHOUT THE DAY .
[2017-02-22] MEDS: MEROPENEM 500 MG in IV NS 0.9% 50 ML IV SCH ×2 (08:46→19:34)
[2017-02-22] MEDS: VANCOMYCIN HCL 125 MG/2.5 ML ORAL.SUSP PO SCH ×4 (08:46→21:30)
[2017-02-22] MEDS: PANTOPRAZOLE 40 MG VIAL IV SCH (08:47)
[2017-02-22] MEDS: ASPIRIN 81 MG TAB.CHEW PO SCH (08:47)
[2017-02-22] MEDS: ISOSORBIDE MONONITRATE 20 MG TABLET PO SCH ×2 (08:47→17:35)
[2017-02-22] MEDS: MULTIVITAMINS,THERAGRAN 1 UDTAB TABLET PO SCH (08:47)
[2017-02-22] MEDS: ATORVASTATIN 10 MG TABLET PO SCH (08:47)
[2017-02-22] MEDS: CLOPIDOGREL BISULFATE 75 MG TABLET PO SCH (08:47)
[2017-02-22] MEDS: ASCORBIC ACID 500 MG TABLET PO SCH (08:47)
[2017-02-22] MEDS: CARVEDILOL 6.25 MG TABLET PO SCH ×2 (08:48→17:35)
[2017-02-22] MEDS: CADEXOMER IODINE 40 GM TUBE TP SCH ×3 (08:50→21:32)
[2017-02-22] MEDS: NEOMY SULF/BACITRAC ZN/POLY 15 GM TUBE TP SCH ×3 (08:50→21:31)
[2017-02-22] MEDS: ACETAMINOPHEN 325 MG TABLET PO PRN (08:59)
[2017-02-22] MEDS: APIXABAN 5 MG TABLET PO SCH (08:59)
[2017-02-22] MEDS ORDERED: ERGOCALCIFEROL (VITAMIN D 2) 50,000 UNIT CAPSULE PO SCH (10:13)
[2017-02-22] MEDS: LORAZEPAM 1 MG TABLET PO PRN ×2 (10:45→21:30)
[2017-02-22] MEDS ORDERED: MAGNESIUM CITRATE 296 ML BOTTLE PO ONE (12:30)
[2017-02-22] MEDS ORDERED: PEG 3350/NA SULF,BICARB,CL/KCL 4,000 ML BOTTLE PO ONE (12:30)
[2017-02-22] MEDS ORDERED: NA PHOS,M-B/NA PHOS,DI-BA 1 EA ENEMA RC PRN (12:30)
[2017-02-22] MEDS: DIGOXIN 0.125 MG TABLET PO SCH (12:54)
[2017-02-22] MEDS: SOD FERRIC GLUC 125 MG in IV NS 0.9% 100 ML IV SCH (14:37)
--- NOTE | 2017-02-22 15:31 | NUR ---
RN NOTE RN CONTACTED CONTACT PERSONNEL SON AND DAUGHTER IN LAW FOR CONSENT FOR EGD AND ALSO COLONOSCOPY PATIENT PATIENT DAUGTHER IN LAW STATES SHE WILL CONTACT PATIENT SON TO CONTACT US BACK TO PROVIDE CONSENT , RN ACKNOWLEDGED AND IS AWAITING RETURN PHONE CALL
[2017-02-22 16:00] VITALS: BP 99/58
--- NOTE | 2017-02-22 18:28 | NUR ---
RN CLOSING NOTE RN SPOKE TO PATIENT FAMILY IN REGARDS TO THE SCHEDULED EGD AND ALSO COLONOSCOPY PATIENT FAMILY REFUSE TO SIGN CONSENT AT THIS TIME BENEFITS EXPRESSED AND EXPLAINED BRIE KLEIN NOTIFIED OF PATIENT FAMILY WISHES AT THIS TIME BOWEL PREP STOPPED PER FAMILY WISHES, PATIENT STABLE THROUGHOUT THE DAY PATIENT STATED REPEATED PATIENT AND REQUEST PAIN MEDICATION .
[2017-02-22 20:00] VITALS: BP 117/59
[2017-02-22] MEDS: VANCOMYCIN 1.25 GM in IV D5W 500 ML IV SCH (20:47)
[2017-02-22] MEDS: ZOLPIDEM TARTRATE 5 MG TABLET PO PRN (21:30)
[2017-02-22] MEDS: TAMSULOSIN 0.4 MG CAP.SR.24H PO SCH (21:33)
[2017-02-22] MEDS: *INSULIN REGULAR(HUMULIN R)HUM 100 UNIT/ML VIAL SQ PRN (21:41)
[2017-02-22] MEDS ORDERED: FUROSEMIDE 40 MG/4 ML VIAL ONE (22:35)
[2017-02-22] MEDS: FUROSEMIDE 40 MG/4 ML VIAL IV SCH (22:36)
[2017-02-23] MEDS: ALBUTEROL FS 2.5 MG/3 ML VIAL.NEB NEB SCH ×4 (01:30→19:30)
[2017-02-23] MEDS: HYDROMORPHONE INJ 2 MG/ML DISP.SYRIN IV PRN ×3 (03:13→18:31)
[2017-02-23] MEDS: BLOOD SUGAR DIAGNOSTIC 1 EACH STRIP VI SCH ×4 (07:30→21:50)
--- NOTE | 2017-02-23 07:46 | NUR ---
RN OPENING NOTES RECEIVED PATIENT ALERT AND ORIENTED X 2-3 WITH MILD CONFUSION RIGHT FOREARM 20 G INTACT & PATENT W/ DRESSING CLEAN DRY AND INTACT SL. NO SOB NOTED AT THIS TIME PATIENT SAFETY MEASURES IN PLACE W/ SIDE RAILS UP, BED LOCKED & IN LOWEST POSITION & BED ALARM ON. RN WILL CONTINUE TO MONITOR THROUGHOUT THE DAY .
[2017-02-23 08:00] VITALS: BP 121/70
[2017-02-23] MEDS: RENAL NOVASOURCE (8OZ) 1 EA BOX PO SCH ×2 (08:00→17:00)
[2017-02-23 08:11] LABS: EOSINOPHILS # (AUTO) 0.4 /CMM (0.0-0.7); HEMATOCRIT 35 % (39-51); HEMOGLOBIN 11.4 g/dL (13.5-17.5); LYMPHOCYTES # (AUTO) 0.4 /CMM (0.8-4.8); LYMPHOCYTES % (AUTO) 1.7 % (20.0-44.0); MEAN CORPUSCULAR HEMOGLOBIN 27 PG (26.0-33.0); MEAN CORPUSCULAR HGB CONC 33 g/dl (31.0-36.0); MEAN CORPUSCULAR VOLUME 82 fL (80-96); MONOCYTES # (AUTO) 1.1 /CMM (0.1-1.30); MONOCYTES % (AUTO) 4.7 % (2.0-12.0); NEUTROPHILS # (AUTO) 20.9 /CMM (1.8-8.9); NEUTROPHILS % (AUTO) 91.6 % (43.0-81.0); PLATELET COUNT (AUTO) 164 /CMM (150-450); RDW COEFFICIENT OF VARIATION 19.4 (11.5-15.0); RED BLOOD CELL COUNT(AUTO) 4.21 MIL/uL (4.5-6.0); WHITE BLOOD COUNT (AUTO) 22.8 K/uL (4.3-11.0)
--- NOTE | 2017-02-23 08:33 | NUR ---
RT NOTE PATIENT REMOVED MASK AND SPILLED HHN TX. REFUSED SECOND ATTEMPT OF ADMINISTERING. SP02 97% ON ROOM AIR. NO RESPIRATORY DISTRESS NOTED. WILL CONTINUE TO MONITOR.
[2017-02-23 08:39] LABS: CALCIUM, SERUM 8.1 mg/dL (8.5-10.1); CREATININE 1.6 mg/dL (0.6-1.3); MAGNESIUM 2.1 mg/dL (1.8-2.4); PHOSPHORUS 3.2 mg/dL (2.5-4.9); POTASSIUM 3.7 mmol/L (3.5-5.1)
[2017-02-23 08:50] LABS: BAND % (MANUAL) 13 % (0.0-5.0); EOSINOPHILS % (MANUAL) 1 % (0-4); LYMPHOCYTES % (MANUAL) 1 % (16-48); MONOCYTES % (MANUAL) 2 % (0-11.0); NEUTROPHILS % (MANUAL) 83 (42-76)
[2017-02-23] MEDS: ATORVASTATIN 10 MG TABLET PO SCH (08:59)
[2017-02-23] MEDS: FUROSEMIDE 40 MG/4 ML VIAL IV SCH ×2 (08:59→17:29)
[2017-02-23] MEDS: PANTOPRAZOLE 40 MG VIAL IV SCH (08:59)
[2017-02-23] MEDS: ASCORBIC ACID 500 MG TABLET PO SCH (08:59)
[2017-02-23] MEDS: MULTIVITAMINS,THERAGRAN 1 UDTAB TABLET PO SCH (08:59)
[2017-02-23] MEDS: CLOPIDOGREL BISULFATE 75 MG TABLET PO SCH (08:59)
[2017-02-23] MEDS: ISOSORBIDE MONONITRATE 20 MG TABLET PO SCH ×2 (09:00→16:50)
[2017-02-23] MEDS: APIXABAN 5 MG TABLET PO SCH (09:00)
[2017-02-23] MEDS: CARVEDILOL 6.25 MG TABLET PO SCH ×2 (09:00→16:50)
[2017-02-23] MEDS: ASPIRIN 81 MG TAB.CHEW PO SCH (09:00)
[2017-02-23] MEDS: CADEXOMER IODINE 40 GM TUBE TP SCH ×3 (09:01→21:27)
[2017-02-23] MEDS: NEOMY SULF/BACITRAC ZN/POLY 15 GM TUBE TP SCH ×3 (09:01→21:27)
[2017-02-23] MEDS: VANCOMYCIN HCL 125 MG/2.5 ML ORAL.SUSP PO SCH ×4 (09:09→21:26)
[2017-02-23] MEDS: MEROPENEM 500 MG in IV NS 0.9% 50 ML IV SCH ×2 (09:15→21:26)
--- NOTE | 2017-02-23 11:59 | NUR ---
RN NOTE PATIENT CBG ELEVATED HOWEVER PATIENT REFUSED TO RECEIVE INSULIN AT THIS TIME PATIENT STATES THAT IT IS ELEVATED DUE TO THE FOOD HE AT FOR A SNACK
--- NOTE | 2017-02-23 12:26 | NUR ---
RN NOTE PATIENT TRANSFERRED TO MED-SURG UNIT REPORT GIVEN TO HAN / HECTOR LARSON FOR CONTINUATION OF CARE , PATIENT ARRIVES STABLE NO ISSUES PRESENT NO PAIN OR SOB NOTED AT THIS TIME. PATIENT RESTING IN BED
--- NOTE | 2017-02-23 13:15 | NUR ---
RN NOTES NOTIFIED FROM [facility] PT IS POSITIVE FOR CDIFF, KITCHEN BATH DESIGNER SAMUEL NOTIFIED WITH NO NEW ORDERS ISOLATION PRECAUTIONS OBSERVED
[2017-02-23] MEDS: DIGOXIN 0.125 MG TABLET PO SCH (13:19)
--- NOTE | 2017-02-23 14:24 | NUR ---
RN INITIAL NOTES 1225 PT ARRIVED IN MED-SURG VIA GURNEY IN STABLE CONDITION. BEDSIDE REPORT GIVEN. RESPIRATIONS ARE EVEN AND UNLABORED, NOT IN ANY ACUTE DISTRESS NOTED. VITAL SIGNS REMAIN WNL. CHANGED COLOSTOMY BAG UPON ARRIVAL. IV TO RFA PATENT, DRESSING KEPT CLEAN AND DRY. DENIES ANY PAIN AT THIS TIME AND WILL CONTINUE TO MONITOR.
[2017-02-23] MEDS: LORAZEPAM 1 MG TABLET PO PRN (16:49)
[2017-02-23] MEDS: SOD FERRIC GLUC 125 MG in IV NS 0.9% 100 ML IV SCH (16:52)
--- NOTE | 2017-02-23 18:43 | NUR ---
RN CLOSING NOTES All due medications given and needs met. remains a/o x2-3, respirations are even and unlabored, not in any acute distress noted. C/o pain to right AKA leg, gave dilaudid 1mg via IV, noted to be effective. Repositioned q2hrs to prevent further skin injury. changed colostomy bag x1. continues to be on isolation for Cdiff, contact precaution. Pt seen by Dr. Álvarez with orders to d/c IV Vanco. pt made aware. New peripheral IV to left hand #20, intact. Dressing kept clean and dry. Reminded pt to use call light when assistance is needed, call light is left within reach.
[2017-02-23] MEDS: TAMSULOSIN 0.4 MG CAP.SR.24H PO SCH (21:27)
[2017-02-23] MEDS: ACETAMINOPHEN 325 MG TABLET PO PRN (21:27)
[2017-02-23] MEDS: ZOLPIDEM TARTRATE 5 MG TABLET PO PRN (22:00)
[2017-02-23] MEDS: *INSULIN REGULAR(HUMULIN R)HUM 100 UNIT/ML VIAL SQ PRN (22:04)
[2017-02-23] MEDS ORDERED: METRONIDAZOLE 500MG/ NS 100ML 100 ML IV ONE (22:05)
[2017-02-23] MEDS: METRONIDAZOLE 500MG/ NS 100ML 500 MG in PREMIX 1 EA IV SCH (22:05)
[2017-02-24] MEDS ORDERED: LORAZEPAM INJ 2 MG/ML VIAL ONE (00:36)
[2017-02-24] MEDS: LORAZEPAM INJ 2 MG/ML VIAL IV PRN ×2 (00:38→13:13)
[2017-02-24] MEDS: ALBUTEROL FS 2.5 MG/3 ML VIAL.NEB NEB SCH ×4 (01:30→19:30)
[2017-02-24] MEDS: HYDROMORPHONE INJ 2 MG/ML DISP.SYRIN IV PRN ×4 (01:47→20:59)
[2017-02-24] MEDS ORDERED: METRONIDAZOLE 500MG/ NS 100ML 100 ML IV ONE (05:48)
[2017-02-24] MEDS: METRONIDAZOLE 500MG/ NS 100ML 500 MG in PREMIX 1 EA IV SCH ×3 (05:50→20:41)
--- NOTE | 2017-02-24 06:30 | NUR ---
MS RN NOTES AWAKE & RESPONSIVE. NOT IN ANY DISTRESS. NO SOB NOTED. DENIES ANY PAIN OR DISCOMFORT AT THIS TIME. MONITORED ACCORDINGLY. CALL LIGHT WITHIN REACH. BED IN LOWEST POSITION. SR UP X 3 FOR SAFETY WITH BED ALARM ON. WILL ENDORSE TO NEXT SHIFT.
[2017-02-24] MEDS: *INSULIN REGULAR(HUMULIN R)HUM 100 UNIT/ML VIAL SQ PRN ×3 (06:32→18:24)
[2017-02-24] MEDS: BLOOD SUGAR DIAGNOSTIC 1 EACH STRIP VI SCH ×4 (06:32→21:31)
[2017-02-24] MEDS ORDERED: METRONIDAZOLE 500MG/ NS 100ML 500 MG in PREMIX 1 EA IV SCH (07:10)
--- NOTE | 2017-02-24 07:20 | NUR ---
RN NOTES PT IS LAYING DOWN IN BED, RESTING COMFORTABLY. NO SOB OR SIGNS OF DISTRESS NOTED. PT PULLED OUT IV, WILL ATTEMPT TO REINSERT. SAFETY MEASURES ARE IN PLACE, CALL LIGHT IS IN REACH. WILL CONTINUE TO MONITOR.
--- NOTE | 2017-02-24 07:45 | NUR ---
PT REFUSED HHN TX AT THIS TIME. NO SOB/RESP DISTRESS NOTED. NEO NAGEL NOTIFIED. Addendum: 02/24/17 at 0802 by ANNA MARIE SIGALA RT Amended: Links added.
[2017-02-24 08:00] VITALS: BP 125/61
[2017-02-24] MEDS: RENAL NOVASOURCE (8OZ) 1 EA BOX PO SCH ×2 (08:00→17:00)
[2017-02-24] MEDS: ASPIRIN 81 MG TAB.CHEW PO SCH (08:35)
[2017-02-24] MEDS: APIXABAN 5 MG TABLET PO SCH (08:35)
[2017-02-24] MEDS: ATORVASTATIN 10 MG TABLET PO SCH (08:35)
[2017-02-24] MEDS: VANCOMYCIN HCL 125 MG/2.5 ML ORAL.SUSP PO SCH ×4 (08:35→20:41)
[2017-02-24] MEDS: ASCORBIC ACID 500 MG TABLET PO SCH (08:36)
[2017-02-24] MEDS: MULTIVITAMINS,THERAGRAN 1 UDTAB TABLET PO SCH (08:36)
[2017-02-24] MEDS: CLOPIDOGREL BISULFATE 75 MG TABLET PO SCH (08:36)
[2017-02-24] MEDS: PANTOPRAZOLE 40 MG VIAL IV SCH (08:36)
[2017-02-24] MEDS: CARVEDILOL 6.25 MG TABLET PO SCH ×2 (08:36→18:14)
[2017-02-24] MEDS: ISOSORBIDE MONONITRATE 20 MG TABLET PO SCH ×2 (08:36→18:14)
[2017-02-24] MEDS: CADEXOMER IODINE 40 GM TUBE TP SCH ×3 (08:37→20:43)
[2017-02-24] MEDS: NEOMY SULF/BACITRAC ZN/POLY 15 GM TUBE TP SCH ×3 (08:37→20:43)
[2017-02-24] MEDS: ACETAMINOPHEN 325 MG TABLET PO PRN (09:19)
[2017-02-24] MEDS: FUROSEMIDE 40 MG/4 ML VIAL IV SCH ×2 (09:53→18:13)
[2017-02-24] MEDS: MEROPENEM 500 MG in IV NS 0.9% 50 ML IV SCH (09:53)
[2017-02-24 12:00] VITALS: BP 121/48
[2017-02-24] MEDS: DIGOXIN 0.125 MG TABLET PO SCH (12:30)
[2017-02-24] MEDS: QUETIAPINE FUMARATE 25 MG TABLET PO PRN (14:16)
[2017-02-24 17:29] LABS: EOSINOPHILS # (AUTO) 0.4 /CMM (0.0-0.7); EOSINOPHILS % (AUTO) 2.6 % (0.0-6.0); HEMATOCRIT 34 % (39-51); HEMOGLOBIN 11.2 g/dL (13.5-17.5); LYMPHOCYTES # (AUTO) 0.6 /CMM (0.8-4.8); LYMPHOCYTES % (AUTO) 4.4 % (20.0-44.0); MEAN CORPUSCULAR HEMOGLOBIN 27 PG (26.0-33.0); MEAN CORPUSCULAR HGB CONC 33 g/dl (31.0-36.0); MEAN CORPUSCULAR VOLUME 82 fL (80-96); MONOCYTES # (AUTO) 0.9 /CMM (0.1-1.30); MONOCYTES % (AUTO) 6.6 % (2.0-12.0); NEUTROPHILS # (AUTO) 11.5 /CMM (1.8-8.9); NEUTROPHILS % (AUTO) 86.4 % (43.0-81.0); PLATELET COUNT (AUTO) 174 /CMM (150-450); RDW COEFFICIENT OF VARIATION 20.4 (11.5-15.0); RED BLOOD CELL COUNT(AUTO) 4.17 MIL/uL (4.5-6.0); WHITE BLOOD COUNT (AUTO) 13.3 K/uL (4.3-11.0)
[2017-02-24 17:39] LABS: CREATININE 1.6 mg/dL (0.6-1.3); POTASSIUM 2.9 mmol/L (3.5-5.1)
[2017-02-24] MEDS ORDERED: oxyCODONE IR immediate release 5 MG PO PRN ×2 (18:00→18:30)
[2017-02-24] MEDS ORDERED: POTASSIUM CHLORIDE 20 MEQ TAB.PRT.SR PO ONE (18:00)
[2017-02-24] MEDS: QUETIAPINE FUMARATE 25 MG TABLET PO SCH (18:14)
--- NOTE | 2017-02-24 18:50 | NUR ---
RN NOTES PT IS RESTING IN BED, NO SIGNS OF DISTRESS OR PAIN NOTED. PT IS CONFUSED AND TRIED TO GET OUT OF BED MANY TIMES TODAY. PT REMINDED TO STAY IN BED AND ORIENTED. PAIN MEDICATIONS GIVEN NEEDED. WOUND CARE PROVIDED FOR PT AND ALL MEDS WERE GIVEN ORDERED. SAFETY MEASURES ARE IN PLACE, CALL LIGHT IS IN REACH. WILL ENDORSE TO RETAIL PRODUCT ADVISOR RN FOR CONTINUITY OF CARE.
--- NOTE | 2017-02-24 19:30 | NUR ---
RN NOTES RECEIVED PATIENT IN AWAKE, RESTLESS, AO X 2, ABLE TO MAKE NEEDS KNOWN. NO ACUTE DISTRESS NOTED. DENIES ANY PAIN AT THIS TIME. IV SITE PATENT, INTACT; FLUSHED. COLOSTOMY BAG INTACT; WITH LOOSE BROWN STOOL. ON CONTACT ISOLATION FOR C DIFF. SAFETY REMINDERS GIVEN. ON LOW BED WITH BILATERAL UPPER SIDE RAILS UP. CALL MANCUSO WITHIN EASY REACH. BED ALARM ON. WILL CONTINUE TO MONITOR.
[2017-02-24 20:00] VITALS: BP 117/69
[2017-02-24] MEDS: TAMSULOSIN 0.4 MG CAP.SR.24H PO SCH (21:22)
[2017-02-24] MEDS ORDERED: LORAZEPAM INJ 2 MG/ML VIAL IV PRN (23:30)
[2017-02-25] MEDS: ALBUTEROL FS 2.5 MG/3 ML VIAL.NEB NEB SCH ×2 (01:09→07:35)
[2017-02-25] MEDS: QUETIAPINE FUMARATE 25 MG TABLET PO PRN (02:07)
[2017-02-25] MEDS: METRONIDAZOLE 500MG/ NS 100ML 500 MG in PREMIX 1 EA IV SCH (05:41)
--- NOTE | 2017-02-25 06:00 | NUR ---
RN NOTES PATIENT ASLEEP, AROUSABLE. RESPIRATIONS EVEN. NO SIGNS OF PAIN NOTED. DUE MEDS GIVEN WITH NO ASE NOTED. NEEDS ATTENDED. KEPT CLEAN AND DRY. SAFETY PRECAUTIONS AND COMFORT MEASURES IN PLACE. WILL GIVE REPORT TO DAY SHIFT FOR CONTINUITY OF CARE.
[2017-02-25] MEDS: BLOOD SUGAR DIAGNOSTIC 1 EACH STRIP VI SCH ×2 (06:39→12:17)
[2017-02-25 08:00] VITALS: BP 119/62
[2017-02-25] MEDS: RENAL NOVASOURCE (8OZ) 1 EA BOX PO SCH (08:00)
--- NOTE | 2017-02-25 08:00 | NUR ---
MS LARSON OPEINSusan Addendum: 02/25/17 at 1312 by DENA NAVARRO RN MS LARSON OPENING NOTE PATIENT IS ALERT AND ORIENTED x2. NO PAIN AT THIS TIME. NO SOB OR DISTRESS NOTED. CALL LIGHT WITHIN REACH. SAFETY MEASURES IMPLEMENTED. ABLE TO COMMUNICATE NEEDS. IV INTACT AND PATENT NO REDNESS OR SWELLING NOTED. ON ROOM AIR TOLERATING WELL. COLOSTOMY INTACT AND PATENT. ON ISOLATION FOR CDIFF. WILL CONTINUE TO MONITOR
[2017-02-25] MEDS: CADEXOMER IODINE 40 GM TUBE TP SCH ×2 (09:00→10:16)
[2017-02-25] MEDS: PANTOPRAZOLE 40 MG VIAL IV SCH (09:52)
[2017-02-25] MEDS: APIXABAN 5 MG TABLET PO SCH (09:52)
[2017-02-25] MEDS: ASPIRIN 81 MG TAB.CHEW PO SCH (09:53)
[2017-02-25] MEDS: MULTIVITAMINS,THERAGRAN 1 UDTAB TABLET PO SCH (09:53)
[2017-02-25] MEDS: ATORVASTATIN 10 MG TABLET PO SCH (09:53)
[2017-02-25] MEDS: ISOSORBIDE MONONITRATE 20 MG TABLET PO SCH (09:53)
[2017-02-25] MEDS: ASCORBIC ACID 500 MG TABLET PO SCH (09:54)
[2017-02-25] MEDS: QUETIAPINE FUMARATE 25 MG TABLET PO SCH (09:54)
[2017-02-25 09:55] VITALS: BP 119/62
[2017-02-25] MEDS: FUROSEMIDE 40 MG/4 ML VIAL IV SCH (09:55)
[2017-02-25] MEDS: CARVEDILOL 6.25 MG TABLET PO SCH (09:55)
[2017-02-25] MEDS: CLOPIDOGREL BISULFATE 75 MG TABLET PO SCH (10:00)
[2017-02-25] MEDS: VANCOMYCIN HCL 125 MG/2.5 ML ORAL.SUSP PO SCH ×2 (10:04→12:17)
[2017-02-25] MEDS: NEOMY SULF/BACITRAC ZN/POLY 15 GM TUBE TP SCH ×2 (10:15→10:16)
[2017-02-25] MEDS: HYDROMORPHONE INJ 2 MG/ML DISP.SYRIN IV PRN (10:27)
[2017-02-25] MEDS: DIGOXIN 0.125 MG TABLET PO SCH (12:21)
[2017-02-25] MEDS ORDERED: LORA2VIA11 IV (12:56)
[2017-02-25] MEDS ORDERED: QUET25TA PO ×2 (12:56)
[2017-02-25] MEDS ORDERED: MULT-24 PO (12:56)
[2017-02-25] MEDS ORDERED: [UNRECOGNIZED DRUG - OTHER] PO (12:56)
[2017-02-25] MEDS ORDERED: NEOM15OI3 TP (12:56)
[2017-02-25] MEDS ORDERED: VANC125C11 PO (12:56)
[2017-02-25] MEDS ORDERED: HYDR2DIS IV (12:56)
[2017-02-25] MEDS ORDERED: INSU100V28 SQ (12:56)
[2017-02-25] MEDS ORDERED: *INS REG SQ (12:56)
[2017-02-25] MEDS ORDERED: CADE40GE2 TP (12:56)
[2017-02-25] MEDS ORDERED: OXYC5CAP18 PO (12:56)
[2017-02-25] MEDS ORDERED: ASCO500T9 PO (12:56)
[2017-02-25] MEDS ORDERED: FURO10VI PO (12:56)
[2017-02-25] MEDS ORDERED: QUETIAPINE FUMARATE 25 MG TABLET PO SCH (13:00)
[2017-02-25] MEDS ORDERED: METR500T PO (13:03)
--- NOTE | 2017-02-25 13:12 | NUR ---
MS ELECTRICIAN MACHINE SHOP NOTE PATIENT IS ALERT AND ORIENTED x2. NO PAIN AT THIS TIME. NO SOB OR DISTRESS NOTED. CALL LIGHT WITHIN REACH AT ALL TIMES. SAFETY MEASURES IMPLEMENTED. ABLE TO COMMUNICATE NEEDS. BLOOD SUGAR CHECKED 160-PATIENT REFUSED INSULIN. PATIENT REFUSED ALL AFTERNOON MEDICATIONS BECAME VERY AGGRESSIVE AND BEGAN SHOUTING INAPPROPRIATE WORDS. IV REMOVED, SKIN INTACT. NO BELONGINGS AT BEDSIDE. DISCHARGE GIVEN TO RN MECHANICAL EQUIPMENT TEST ENGINEER AT [facility]. LEAVING VIA AMBULANCE. PATIENT REFUSED PICTURE OF ABDOMEN, ATTEMPTED TO HIT ME WHEN ASKING TO TAKE PICTURE.
== END 2017-02-25 15:10 | DRG 853 ==
LOC: ER 15:29 → TRANSITION 16:40 → UNDOADMIN 02-18 08:49 → ER 02-18 13:51 → TELE1 02-18 13:52 → MEDSG1 02-19 11:51 → MEDSG2 02-23 12:11
PROVIDERS: ADMIT Internal Medicine; ATTEND Internal Medicine
PROC: 0KBT0ZZ Excision of Left Lower Leg Muscle, Open Approach (ICD-10-PCS; principal; 2017-02-23)
PROC: 0JBP0ZZ Excision of Left Lower Leg Subcutaneous Tissue and Fascia, Open Approach (ICD-10-PCS; 2017-02-23)
DX: A41.9 Sepsis, unspecified organism (principal); G93.41 Metabolic encephalopathy; N17.0 Acute kidney failure with tubular necrosis; I50.23 Acute on chronic systolic (congestive) heart failure; A04.72 Enterocolitis due to Clostridium difficile, not specified as recurrent; L89.152 Pressure ulcer of sacral region, stage 2; I82.411 Acute embolism and thrombosis of right femoral vein; J90 Pleural effusion, not elsewhere classified; D68.59 Other primary thrombophilia; E11.22 Type 2 diabetes mellitus with diabetic chronic kidney disease; I13.0 Hypertensive heart and chronic kidney disease with heart failure and stage 1 through stage 4 chronic kidney disease, or unspecified chronic kidney disease; L03.113 Cellulitis of right upper limb; E87.1 Hypo-osmolality and hyponatremia; M62.82 Rhabdomyolysis; M86.8X6 Other osteomyelitis, lower leg; F05 Delirium due to known physiological condition; L03.116 Cellulitis of left lower limb; L89.890 Pressure ulcer of other site, unstageable; E11.42 Type 2 diabetes mellitus with diabetic polyneuropathy; D50.9 Iron deficiency anemia, unspecified; I25.10 Atherosclerotic heart disease of native coronary artery without angina pectoris; Z93.3 Colostomy status; Z79.01 Long term (current) use of anticoagulants; N40.0 Benign prostatic hyperplasia without lower urinary tract symptoms; N18.9 Chronic kidney disease, unspecified; J44.9 Chronic obstructive pulmonary disease, unspecified; E78.5 Hyperlipidemia, unspecified; G89.4 Chronic pain syndrome; E11.51 Type 2 diabetes mellitus with diabetic peripheral angiopathy without gangrene; Z87.891 Personal history of nicotine dependence; E88.81 Metabolic syndrome and other insulin resistance; I48.91 Unspecified atrial fibrillation; T23.201A Burn of second degree of right hand, unspecified site, initial encounter; X08.8XXA Exposure to other specified smoke, fire and flames, initial encounter; Y93.9 Activity, unspecified; Y92.009 Unspecified place in unspecified non-institutional (private) residence as the place of occurrence of the external cause; E66.9 Obesity, unspecified; Z68.35 Body mass index [BMI] 35.0-35.9, adult; T24.212A Burn of second degree of left thigh, initial encounter; T21.22XA Burn of second degree of abdominal wall, initial encounter; E11.621 Type 2 diabetes mellitus with foot ulcer; L97.529 Non-pressure chronic ulcer of other part of left foot with unspecified severity; E11.69 Type 2 diabetes mellitus with other specified complication; E11.40 Type 2 diabetes mellitus with diabetic neuropathy, unspecified; Z79.84 Long term (current) use of oral hypoglycemic drugs; E11.65 Type 2 diabetes mellitus with hyperglycemia; R19.5 Other fecal abnormalities; I87.2 Venous insufficiency (chronic) (peripheral); I27.20 Pulmonary hypertension, unspecified; Z79.891 Long term (current) use of opiate analgesic; Z89.422 Acquired absence of other left toe(s); Z89.611 Acquired absence of right leg above knee
CPT/HCPCS: 36415; 71045-TC; 76604-TC; 80048-TC; 80053-TC; 80076-TC; 80162-TC; 82272-TC; 82550-TC; 82553-TC; 82728-TC; 82962-TC; 83540-TC; 83605-TC; 83735-TC; 84100-TC; 84134-TC; 84439-TC; 84443-TC; 84484-TC; 85025-TC; 85610-TC; 85730-TC; 87040-TC; 87081-TC; 93307-TC; 93926-TC; 93970-TC; A4216; A4349; A4606; A6253; A6402; A6403; C9113; J0690; J1170; J1815; J1940; J2060; J2185; J2270; J2405; J2543; J2916; J3370; J3475; J3490; J7030; J7050; J7060; Z7610

== ENCOUNTER 2017-07-27 20:09 | Inpatient (IN) | payer MEDICARE, OTHER ==
[~2017-07-27] VITALS: Ht 175.3 cm; Wt 93.9 kg
[~2017-07-27 20:09] MED LIST: *INS REG SQ; ALBU18HF2 IH; APIX5TAB PO; ASCO500T9 PO; ASPI-1169 PO; ATOR10TA PO; BISA5TAB10 PO; CADE40GE2 TP; CARV6.252 PO; CLOP75TA15 PO; DIGO125T PO; ERGO500014 PO; FURO10VI PO; HYDR2DIS IV; INSU100V28 SQ; INSU300I SQ; IPRA3AMP IH; ISOS20TA6 PO; LORA2VIA11 IV; METR500T PO; MULT-24 PO; MUPI22OI2 TP; NEOM15OI3 TP; OXYC5CAP18 PO; POTA10TA15 PO; QUET25TA PO; TAMS-12 PO; VANC125C11 PO; ZOLP10TA6 PO; [UNRECOGNIZED DRUG - OTHER] PO
--- NOTE | 2017-07-27 23:00 | NUR ---
RN NOTES RECEIVED PT. FROM [place] DIRECT ADMIT, A/OX3, WITH RIGHT AKA, LEFT LEG CELLULITIS, A-FIB ON TELE MONITOR HR 104, ADMISSION INSTRUCTION WAS RENDERED, EVENING CARE RENDERED, CALL LIGHT WITHIN REACH, [id number], CONTINUE TO MONITOR
[2017-07-28] VITALS: BP 138/71
[2017-07-28] MEDS ORDERED: VALS1TAB52 PO (00:22)
[2017-07-28] MEDS ORDERED: PREG50CA PO (00:22)
[2017-07-28] MEDS ORDERED: HYDR25TA4 PO (00:22)
[2017-07-28] MEDS ORDERED: CARV25TA2 PO (00:22)
[2017-07-28] MEDS ORDERED: GLIM1TAB2 PO (00:22)
[2017-07-28] MEDS ORDERED: WARF5TAB77 PO (00:22)
[2017-07-28] MEDS ORDERED: ESCI5TAB PO (00:22)
[2017-07-28] MEDS ORDERED: METF500T6 PO (00:22)
[2017-07-28] MEDS ORDERED: MAG HYDROX/AL HYDROX/SIMETH 30 ML UDC PO PRN (00:30)
[2017-07-28] MEDS ORDERED: DEXTROSE 50%-WATER 50 ML DISP.SYRIN IV PRN (00:30)
[2017-07-28] MEDS ORDERED: MAGNESIUM HYDROXIDE 30 ML UDC PO PRN (00:30)
[2017-07-28] MEDS ORDERED: ZOLPIDEM TARTRATE 5 MG TABLET PO PRN (00:30)
[2017-07-28] MEDS ORDERED: ONDANSETRON HCL/PF 4 MG/2 ML VIAL IVP PRN (00:30)
--- NOTE | 2017-07-28 00:30 | NUR ---
RN ABE COATS-KAROLINA CAME AND TALKED THE PATIENT AND MADE ADMISSION ORDER, ORDER NOTED AND CARRIED OUT
--- NOTE | 2017-07-28 00:47 | NUR ---
RN NOTES SPOKE TO THE PHARMACY THAT PATIENT ALREADY RECEIVED VANCOMYCIN 1500MG IV IN ER [facility] AND CLARIFY IF HE STILL WANTS ME TO GIVE THE VANCOMYCIN IV. PHARMACY STATED NOT TO GIVE IT AND WILL [place]ST[place] THE TIME
[2017-07-28] MEDS ORDERED: VANCOMYCIN 1 GM in IV NS 0.9% 250 ML IV SCH (01:00)
[2017-07-28] MEDS: HYDROMORPHONE INJ 2 MG/ML DISP.SYRIN IV PRN ×4 (01:04→16:06)
--- NOTE | 2017-07-28 01:05 | NUR ---
RN NOTES: Patient complaining of pain on L) leg, pain scale 9/10. Dilaudid 1mg given as ordered.
[2017-07-28 04:00] VITALS: BP 127/89
[2017-07-28] MEDS ORDERED: PIPERACILLIN /TAZOBACTAM 2.25 G VIAL IV ONE (04:04)
[2017-07-28] MEDS ORDERED: PIPERACILLIN /TAZOBACTAM 2.25 G in IV NS 0.9% 50 ML IV SCH (05:00)
--- NOTE | 2017-07-28 05:20 | NUR ---
RN NOTES: Patient complaining of pain on L foot, 10/24, screaming. Dilaudid 1mg given as ordered. Patient saying he wanted more because "he can't feel it". Explained it to him that we can only administer what is ordered by the doctor. Patient wanted to know when the pain meds is due next, informed patient of the timing.
--- NOTE | 2017-07-28 05:42 | NUR ---
RN NOTES: Patient BSL checked, 138. Refused insulin
[2017-07-28] MEDS: INSULIN REGULAR, HUMAN 100 UNIT/ML 3 ML VIAL SQ PRN ×5 (05:44→21:34)
[2017-07-28] MEDS: LORAZEPAM INJ 2 MG/ML VIAL IV PRN ×2 (05:55→18:34)
--- NOTE | 2017-07-28 05:55 | NUR ---
RN NOTES: Patient is anxious, screaming and shouting at nurses. Ativan given as ordered.
--- NOTE | 2017-07-28 06:39 | NUR ---
JIG MILL OPERATOR CLOSING NOTES: Patient in bed, sleeping, but easily arousable. Breathing even and unlabored. Patient calmed down after ativan was given, as ordered. Tele monitor in place, afib 109. IV site on R AC patent and intact. No complaints as of this time. PATIENT CENTERED CARE SPECIALIST informed to hold breakfast before patient is seen by Dr. Garzon. All needs attended to. All medications given as ordered. Call finley within reach. Bed in low, locked position. Will endorsed continuity of care to AM RN. Addendum: 07/28/17 at 0703 by KIKI CAIN RN Colostomy bag in place, no output.
[2017-07-28] MEDS: BLOOD SUGAR DIAGNOSTIC 1 EACH STRIP IN SCH ×4 (06:43→21:32)
[2017-07-28 07:13] LABS: BASOPHILS # (AUTO) 0.1 /CMM (0.0-0.2); BASOPHILS % (AUTO) 0.6 % (0.0-2.0); EOSINOPHILS % (AUTO) 3.7 % (0.0-6.0); HEMATOCRIT 44 % (39-51); HEMOGLOBIN 14.2 g/dL (13.5-17.5); LYMPHOCYTES # (AUTO) 1.4 /CMM (0.8-4.8); LYMPHOCYTES % (AUTO) 12.8 % (20.0-44.0); MEAN CORPUSCULAR HEMOGLOBIN 30 PG (26.0-33.0); MEAN CORPUSCULAR HGB CONC 32 g/dl (31.0-36.0); MEAN CORPUSCULAR VOLUME 92 fL (80-96); MONOCYTES # (AUTO) 0.8 /CMM (0.1-1.30); MONOCYTES % (AUTO) 7.6 % (2.0-12.0); NEUTROPHILS # (AUTO) 8.3 /CMM (1.8-8.9); NEUTROPHILS % (AUTO) 75.3 % (43.0-81.0); PLATELET COUNT (AUTO) 179 /CMM (150-450); RDW COEFFICIENT OF VARIATION 18.7 (11.5-15.0)
[2017-07-28] MEDS ORDERED: FEE PK DOSING 1 MIN EA MC ONE (07:29)
--- NOTE | 2017-07-28 07:30 | NUR ---
PSYCHOLOGIST ENGINEERING NOTES Patient received in bed, asleep, easily arousable and comfortable. On contact isolation for h/o MRSA - swab done by night nurse - pending result. IV site on R AC: patent and intact. No moaning or facial grimacing noted. Safety measures in place. bed in lowest position with call light within reach. Will continue to monitor and assess patient
[2017-07-28 07:38] LABS: ALBUMIN 3.3 g/dL (3.4-5.0); BILIRUBIN,TOTAL 1.4 mg/dL (0.2-1.0); CALCIUM, SERUM 8.9 mg/dL (8.5-10.1); CREATININE 1.4 mg/dL (0.6-1.3); MAGNESIUM 1.9 mg/dL (1.8-2.4); PHOSPHORUS 3.6 mg/dL (2.5-4.9); POTASSIUM 4.3 mmol/L (3.5-5.1); TOTAL PROTEIN, SERUM 7.2 g/dL (6.4-8.2)
[2017-07-28 07:41] LABS: TROPONIN I 0.024 ng/mL (0.00-0.056)
[2017-07-28 07:50] LABS: THYROID STIMULATING HORMONE 12.415 uIU/mL (0.358-3.74)
[2017-07-28 08:00] VITALS: BP 134/67
[2017-07-28] MEDS ORDERED: VANCOMYCIN 1 GM in IV D5W 250 ML IV SCH (08:00)
[2017-07-28] MEDS: PANTOPRAZOLE 40 MG TABLET.DR PO SCH (08:03)
[2017-07-28] MEDS ORDERED: FUROSEMIDE 40 MG TABLET PO SCH (09:00)
[2017-07-28] MEDS ORDERED: HYDROCHLOROTHIAZIDE 25 MG TABLET PO SCH (09:00)
[2017-07-28] MEDS: CARVEDILOL 12.5 MG TABLET PO SCH ×2 (09:15→20:39)
[2017-07-28] MEDS: VALSARTAN 80 MG TABLET PO SCH (09:15)
[2017-07-28] MEDS: ATORVASTATIN 10 MG TABLET PO SCH (09:16)
[2017-07-28] MEDS: ESCITALOPRAM OXALATE (10 MG) 10 MG TABLET PO SCH (09:16)
[2017-07-28] MEDS: PREGABALIN 25 MG CAPSULE PO SCH ×2 (09:16→17:31)
[2017-07-28] MEDS ORDERED: ONDANSETRON 4 MG TAB.RAPDIS SL PRN (10:00)
--- NOTE | 2017-07-28 10:23 | NUR ---
ICE CREAM VENDOR NOTES - Preliminary Result notified SAFEMAKER Venous Doppler done. Positive for DVT on left lower leg. Notified Iesha Priest. Awaiting for orders
[2017-07-28 12:00] VITALS: BP 130/86
[2017-07-28] MEDS: PIPERACILLIN /TAZOBACTAM 3.375 G in IV D5W 50 ML IV SCH ×3 (12:11→23:56)
[2017-07-28 14:00] LABS: BILIRUBIN,DIRECT 0.4 mg/dL (0.0-0.2)
[2017-07-28] MEDS ORDERED: Z GUARD REMEDY 2 OZ OINT TP PRN (14:00)
[2017-07-28] MEDS ORDERED: IV NS 0.9% 500 ML IV ONE (14:00)
[2017-07-28] MEDS: RIVAROXABAN 15 MG TABLET PO SCH ×2 (15:30→17:44)
--- NOTE | 2017-07-28 15:30 | NUR ---
M/S RN - Xarelto Per Dr. Gorman, if INR below 3, give Xarelto and hold if greater than 3. Unable to administer dose at 15:30 due to pending coagulation results. Pharmacy made aware.
[2017-07-28 15:46] LABS: ABG BASE EXCESS -8.2 mmol/L; ABG PCO2 28.1 mmHg (35.0-45.0); ABG PH 7.364 (7.350-7.450); ABG PO2 128.6 mmHg (75.0-100.0); AaDO2 66.7 mmHg; MetHb 0.8 % (0.0-1.5); O2Hb 96.2 % (94.0-97.0); SITE, ABG Right Radial; VENT MODE, BG Nasal Cannula
[2017-07-28 16:00] VITALS: BP 136/74
--- NOTE | 2017-07-28 16:20 | NUR ---
ABG Result Results relayed to Dr. Gorman by RT.
[2017-07-28] MEDS: IPRATROPIUM NEB FS 0.5 MG/2.5 ML AMPUL.NEB NEB SCH ×2 (16:21→19:49)
[2017-07-28 16:40] LABS: INR 1.18 (0.87-1.13)
[2017-07-28] MEDS ORDERED: WARFARIN SODIUM 5 MG TABLET PO SCH (17:00)
[2017-07-28] MEDS ORDERED: RIVAROXABAN 10 MG TABLET PO SCH (17:00)
--- NOTE | 2017-07-28 18:23 | NUR ---
CUSTOMER CARE TEAM COACH CLOSING NOTES Patient in bed, comfortable, intermittently awake and verbally responsive. Patient remains A&O with episodes of forgetfulnessand confusion. CT of abdomen, PT INR, VQ Scan, ABGs, LLE wound debridement and doppler of BLE arteries done. TELE monitor shows afib HR83. On O2 @1lpm via nasal cannula with no SOB noted. Not in any apparent distress. Complained of pain with help of pain reliever. All anticipated needs provided and met. Safety measures in place. Bed in lowest position with bed alarm on and call light within reach. Will endorse to bernie shift nurse Addendum: 07/28/17 at 1834 by REENA PRESTON RN CUSTOMER CARE TEAM COACH CLOSING NOTES (Revised) Patient in bed, comfortable, intermittently awake and verbally responsive. Patient remains A&O with episodes of forgetfulnessand confusion. CT of abdomen, PT INR, ABGs, LLE wound debridement and doppler of BLE arteries done. TELE monitor shows afib HR83. On O2 @1lpm via nasal cannula with no SOB noted. Not in any apparent distress. Complained of pain with help of pain reliever. All anticipated needs provided and met. Safety measures in place. Bed in lowest position with bed alarm on and call light within reach. Will endorse to oncoming shift nurse
[2017-07-28 20:00] VITALS: BP 132/76
--- NOTE | 2017-07-28 20:00 | NUR ---
RN NOTES RETURNED FROM VQ SCAN, DROWSY, AROUSEABLE BY TOUCH AND VOICE, ON 3LPM VIA NC, SPO2 98%, NO DISTRESS, NOT IN APPARENT PAIN, NO FACIAL GRIMACING, COLOSTOMY BAG CHANGED, NO OUTPUT YET, LEFT FOOT WOUND DRY, WILL CHANGE DRESSING, SEEN BY ID, NEW ORDER OF WOUND CULTURE TO LEFT FOOT WOUND, V/S STABLE, WILL CONTINUE TO MONITOR. TELE READING AFIB 91, CALL LIGHT WITHIN REACH.
[2017-07-28] MEDS: VANCOMYCIN 0.75 GM in IV D5W 250 ML IV SCH (20:04)
[2017-07-29] VITALS (7 sets, daily range): BP systolic 87–114; BP diastolic 49–73
[2017-07-29] MEDS: IPRATROPIUM NEB FS 0.5 MG/2.5 ML AMPUL.NEB NEB SCH ×4 (00:31→19:46)
[2017-07-29] MEDS: HYDROMORPHONE INJ 2 MG/ML DISP.SYRIN IV PRN ×4 (01:27→22:56)
[2017-07-29] MEDS: PIPERACILLIN /TAZOBACTAM 3.375 G in IV D5W 50 ML IV SCH ×3 (05:25→18:14)
[2017-07-29] MEDS: INSULIN REGULAR, HUMAN 100 UNIT/ML 3 ML VIAL SQ PRN ×2 (06:24→12:43)
--- NOTE | 2017-07-29 06:25 | NUR ---
RN NOTES INSULIN HELD, BG 108
--- NOTE | 2017-07-29 06:59 | NUR ---
RN NOTES PATIENT IS ASLEEP, AROUSEABLE BY VOICE AND TOUCH, NO SOB, ON 3LPM VIA NC, SATURATION 98%, COMPLAINED OF PAIN TO LEFT LOWER LEG, GIVEN DILAUDID X1, GOOD RELIEF, PER V/Q SCAN LOWER PROBABILITY, WOUND CARE PERFORMED, WOUND CULTURE TAKEN FROM LEFT FOOT OPEN WOUND, SEEN BY DR. YANEZ, D/C TELE TO M/S WITH ALL MEDS, NEW ORDER OF LASIX, ALL NEEDS ATTENDED, CALL LIGHT WITHIN REACH.
[2017-07-29 07:07] LABS: BASOPHILS # (AUTO) 0.1 /CMM (0.0-0.2); BASOPHILS % (AUTO) 0.6 % (0.0-2.0); EOSINOPHILS % (AUTO) 4.9 % (0.0-6.0); HEMATOCRIT 37 % (39-51); LYMPHOCYTES # (AUTO) 0.7 /CMM (0.8-4.8); MEAN CORPUSCULAR HEMOGLOBIN 30 PG (26.0-33.0); MEAN CORPUSCULAR HGB CONC 32 g/dl (31.0-36.0); MEAN CORPUSCULAR VOLUME 92 fL (80-96); MONOCYTES # (AUTO) 0.4 /CMM (0.1-1.30); MONOCYTES % (AUTO) 3.7 % (2.0-12.0); NEUTROPHILS # (AUTO) 7.8 /CMM (1.8-8.9); NEUTROPHILS % (AUTO) 83.8 % (43.0-81.0); PLATELET COUNT (AUTO) 153 /CMM (150-450); RDW COEFFICIENT OF VARIATION 18.4 (11.5-15.0); RED BLOOD CELL COUNT(AUTO) 4.05 MIL/uL (4.5-6.0); WHITE BLOOD COUNT (AUTO) 9.4 K/uL (4.3-11.0)
[2017-07-29] MEDS: BLOOD SUGAR DIAGNOSTIC 1 EACH STRIP IN SCH ×4 (07:31→21:41)
[2017-07-29] MEDS: FUROSEMIDE 40 MG/4 ML VIAL IV SCH ×3 (07:31→16:50)
[2017-07-29 07:37] LABS: ALANINE AMINOTRANSFERASE 18 U/L (12-78); ALBUMIN 2.5 g/dL (3.4-5.0); ALKALINE PHOSPHATASE 70 U/L (46-116); ASPARTATE AMINOTRANSFERASE 14 U/L (15-37); BILIRUBIN,TOTAL 0.9 mg/dL (0.2-1.0); CALCIUM, SERUM 8.2 mg/dL (8.5-10.1); CARBON DIOXIDE 21 mmol/L (21-32); CHLORIDE 108 mmol/L (98-107); CREATININE 1.5 mg/dL (0.6-1.3); GLUCOSE 107 mg/dL (74-106); MAGNESIUM 1.8 mg/dL (1.8-2.4); PHOSPHORUS 4.4 mg/dL (2.5-4.9); POTASSIUM 4.4 mmol/L (3.5-5.1); SODIUM SERUM 139 mmol/L (136-145); TOTAL PROTEIN, SERUM 5.5 g/dL (6.4-8.2); UREA NITROGEN, BLOOD 32 mg/dL (7-18)
[2017-07-29 08:56] LABS: TROPONIN I < 0.017 ng/mL (0.00-0.056)
[2017-07-29] MEDS: VANCOMYCIN 0.75 GM in IV D5W 250 ML IV SCH (10:21)
[2017-07-29] MEDS: VALSARTAN 80 MG TABLET PO SCH (10:38)
[2017-07-29] MEDS: ATORVASTATIN 10 MG TABLET PO SCH (10:38)
[2017-07-29] MEDS: ESCITALOPRAM OXALATE (10 MG) 10 MG TABLET PO SCH (10:38)
[2017-07-29] MEDS: CARVEDILOL 12.5 MG TABLET PO SCH ×2 (10:38→21:00)
[2017-07-29] MEDS: PANTOPRAZOLE 40 MG TABLET.DR PO SCH (10:39)
[2017-07-29] MEDS: PREGABALIN 25 MG CAPSULE PO SCH ×2 (10:39→17:28)
[2017-07-29] MEDS: RIVAROXABAN 15 MG TABLET PO SCH ×3 (10:40→17:27)
[2017-07-29] MEDS ORDERED: FUROSEMIDE 40 MG/4 ML VIAL IV SCH (17:00)
[2017-07-29] MEDS: HYDROGEL DRESSING 90 GM TUBE TP SCH (17:40)
--- NOTE | 2017-07-29 18:45 | NUR ---
Patient requested for pain medication, dilaudid 1 mg IV push, pain meds given prior to dressing changed to left lower leg and left foot. Skin integrity was applied. Remains on IV zosyn, instructed to keep right arm down, positionally. Refused to eat dinner, only eating 2 pieces of cake.
--- NOTE | 2017-07-29 19:30 | NUR ---
MS/RN OPENING NOTES PT RECEIVED WITH EYES CLOSED, APPEARS COMFORTABLE. ON 2L O2 VIA NC, BREATHING EVEN AND UNLABORED. NO S/S OF SOB OR DISTRESS NOTED. C/O PAIN TO LEFT LEG, PT RECENTLY RECEIVED DILAUDID. IV TO RAC PATENT AND INTACT. BED IN LOW/LOCKED POSITION WITH CALL LIGHT IN REACH. SIDE RAILS UPX2. RIGHT AKA. LEFT LEG ELEVATED ON PILLOW WITH DRESSING C/D/I. BED IN LOW/LOCKED POSITION WITH CALL LIGHT IN REACH. SIDE RAILS UPX2. WILL CONTINUE TO MONITOR
[2017-07-29] MEDS: CEFEPIME 1 GM in IV D5W 50 ML IV SCH (20:08)
[2017-07-30] MEDS: IPRATROPIUM NEB FS 0.5 MG/2.5 ML AMPUL.NEB NEB SCH ×4 (01:23→19:30)
[2017-07-30] MEDS: VANCOMYCIN 0.75 GM in IV D5W 250 ML IV SCH ×2 (02:44→20:19)
[2017-07-30] MEDS: ACETAMINOPHEN 325 MG TABLET PO PRN (03:35)
--- NOTE | 2017-07-30 05:46 | NUR ---
MS/RN NOTES NOTIFIED STEPHANIE REGARDING PT'S PERSISTENT C/O PAIN 8/10 TO LEFT LEG, HOWEVER UPON ROUNDING PT IS SLEEPING AND APPEARS COMFORTABLE. CHECKED BP MULTIPLE TIMES BUT SBP IS IN THE 80'S, EVEN IN [place] POSITION. ADMINISTERED TYLENOL WITHOUT EFFECTIVENESS. PER STEPHANIE, NO NEW ORDERS FOR PAIN MEDS. PHYSICIAN CONSULT WITH DR. YORK FOR PAIN MANAGEMENT. ORDERS NOTED, WILL ENDORSE TO DAY SHIFT RN FOR FOLLOW UP.
--- NOTE | 2017-07-30 06:11 | NUR ---
MS/RN NOTES FREQUENTLY OFFERED DRESSING CHANGE. REFUSED TOWARDS BEGINNING OF SHIFT, WANTED IT DONE "LATER". WANTED PAIN MEDICATION PRIOR TO DRESSING CHANGE, HOWEVER SBP REMAINED LOW SO PT REFUSED DRESSING CHANGE. PT ALSO REFUSED COLOSTOMY BAG CHANGE. EMPTIED 425CC YELLOW/BROWN SOFT LIQUID STOOL
[2017-07-30 06:29] LABS: BASOPHILS % (AUTO) 0.4 % (0.0-2.0); EOSINOPHILS % (AUTO) 3.5 % (0.0-6.0); HEMATOCRIT 37 % (39-51); HEMOGLOBIN 11.9 g/dL (13.5-17.5); LYMPHOCYTES # (AUTO) 0.6 /CMM (0.8-4.8); LYMPHOCYTES % (AUTO) 5.7 % (20.0-44.0); MEAN CORPUSCULAR HEMOGLOBIN 30 PG (26.0-33.0); MEAN CORPUSCULAR HGB CONC 33 g/dl (31.0-36.0); MEAN CORPUSCULAR VOLUME 91 fL (80-96); MONOCYTES # (AUTO) 0.6 /CMM (0.1-1.30); MONOCYTES % (AUTO) 6.3 % (2.0-12.0); NEUTROPHILS # (AUTO) 8.1 /CMM (1.8-8.9); NEUTROPHILS % (AUTO) 84.1 % (43.0-81.0); PLATELET COUNT (AUTO) 151 /CMM (150-450); RDW COEFFICIENT OF VARIATION 18.2 (11.5-15.0); RED BLOOD CELL COUNT(AUTO) 4.01 MIL/uL (4.5-6.0); WHITE BLOOD COUNT (AUTO) 9.7 K/uL (4.3-11.0)
[2017-07-30] MEDS: BLOOD SUGAR DIAGNOSTIC 1 EACH STRIP IN SCH (06:45)
[2017-07-30] MEDS: INSULIN REGULAR, HUMAN 100 UNIT/ML 3 ML VIAL SQ PRN ×3 (06:48→23:37)
[2017-07-30] MEDS: CEFEPIME 1 GM in IV D5W 50 ML IV SCH (06:50)
--- NOTE | 2017-07-30 07:01 | NUR ---
MS/RN CLOSING NOTES PT WITH EYES CLOSED, APPEARS COMFORTABLE AT THIS TIME. REMAINS ON 2L O2 VIA NC, BREATHING EVEN AND UNLABORED. NO S/S OF SOB, WITH C/O OF PAIN, HOWEVER MD DOES NOT WANT TO ORDER ANY MORE PAIN MEDICATION DUE TO PT'S LOW BP. CONSULT WITH DR. YORK ORDERED. IV TO LAC PATENT AND INTACT. REFUSED DRESSING CHANGE AND COLOSTOMY CHANGE. BED REMAINED IN LOW/LOCKED POSITION WITH CALL LIGHT IN REACH. SIDE RAILS UPX2. WILL ENDORSE TO DAY SHIFT RN RAGHAVENDRA.
[2017-07-30 07:04] LABS: ALANINE AMINOTRANSFERASE 12 U/L (12-78); ALBUMIN 2.3 g/dL (3.4-5.0); ALKALINE PHOSPHATASE 72 U/L (46-116); ASPARTATE AMINOTRANSFERASE 14 U/L (15-37); BILIRUBIN,TOTAL 0.7 mg/dL (0.2-1.0); CALCIUM, SERUM 7.8 mg/dL (8.5-10.1); CARBON DIOXIDE 18 mmol/L (21-32); CHLORIDE 105 mmol/L (98-107); CREATININE 2.1 mg/dL (0.6-1.3); GLUCOSE 230 mg/dL (74-106); MAGNESIUM 1.7 mg/dL (1.8-2.4); POTASSIUM 4.5 mmol/L (3.5-5.1); SODIUM SERUM 135 mmol/L (136-145); TOTAL PROTEIN, SERUM 5.5 g/dL (6.4-8.2); UREA NITROGEN, BLOOD 34 mg/dL (7-18)
[2017-07-30 07:08] LABS: TROPONIN I < 0.017 ng/mL (0.00-0.056)
--- NOTE | 2017-07-30 07:20 | NUR ---
MS/RN OPENING NOTE PATIENT ALERT AND ORIENTED X3. DENIES PAIN AT THIS TIME. RESPIRATION REGULAR AND UNLABORED. DENIES SOB. RAC G 18 PATENT AND SALINE LOCKED. BED LOW AND LOCKED. SIDE RAILS UP X3. CALL LIGHT WITHIN REACH. WILL CONTINUE TO MONITOR.
[2017-07-30 08:00] VITALS: BP 100/40
[2017-07-30] MEDS: PANTOPRAZOLE 40 MG TABLET.DR PO SCH (08:23)
[2017-07-30] MEDS: PREGABALIN 25 MG CAPSULE PO SCH ×2 (08:23→18:14)
[2017-07-30] MEDS: ESCITALOPRAM OXALATE (10 MG) 10 MG TABLET PO SCH (08:24)
[2017-07-30] MEDS: ATORVASTATIN 10 MG TABLET PO SCH (08:24)
[2017-07-30] MEDS: RIVAROXABAN 15 MG TABLET PO SCH ×2 (08:25→18:15)
[2017-07-30] MEDS: HYDROGEL DRESSING 90 GM TUBE TP SCH (08:31)
[2017-07-30] MEDS: CARVEDILOL 12.5 MG TABLET PO SCH ×2 (08:31→21:00)
[2017-07-30] MEDS: VALSARTAN 80 MG TABLET PO SCH (08:32)
--- NOTE | 2017-07-30 10:04 | NUR ---
MS/RN NOTE COLOSTOMY BAG IS CHANGED. THE PATIENT REFUSED WOUNDS DRESSING CHANGE AT THIS TIME. DESPITE EXPLAINING RISKS AND BENEFITS MULTIPLE TIMES. WILL CONTINUE TO ENCOURAGE.
[2017-07-30] MEDS ORDERED: Magnesium 1GM/D5W 100ML PREMIX 100 ML IV SCH (10:56)
[2017-07-30] MEDS ORDERED: DEXTROSE 50%-WATER 50 ML DISP.SYRIN IV PRN (11:00)
[2017-07-30] MEDS: BLOOD SUGAR DIAGNOSTIC 1 EACH STRIP VI SCH ×3 (12:03→23:25)
[2017-07-30] MEDS: HYDROMORPHONE INJ 2 MG/ML DISP.SYRIN IV PRN (12:31)
[2017-07-30 16:00] VITALS: BP 93/59
--- NOTE | 2017-07-30 17:00 | NUR ---
MS/RN NOTE DR YORK IS AWARE TO SEE THE PATIENT.
--- NOTE | 2017-07-30 18:36 | NUR ---
MS/RN CLOSING NOTE PATIENT ALERT AND ORIENTED X3. DENIES SOB. RESPIRATION REGULAR AND UNLABORED. DENIES PAIN. WOUND DRESSING CHANGED. COLOSTOMY BAG CHANGED. RAC G 18 PATENT AND SALINE LOCKED. BED LOW AND LOCKED. SIDE RAILS UP X3. CALL LIGHT WITHIN REACH. WILL ENDORSE TO MIDDLE SCHOOL COUNSELOR.
--- NOTE | 2017-07-30 19:19 | NUR ---
MS/RN NOTE KAROLINA KILPATRICK IS MADE AWARE OF LEFT 2ND TOE SKIN TEAR AND NEW ORDER IS OBTAINED. NOTED AND CARRIED OUT.
--- NOTE | 2017-07-30 19:50 | NUR ---
MS/HEAD STOCK OPERATOR; RECEIVED PT IN BED SLEEPING. BREATHING NON LABORED. WITH COLOSTOMY INTACT WITH BROWN LOOSE BM. HL INTACT. BED ON LOWER POSITION AND LOCKED FOR SAFETY. SIDE RAILS X3 ARE UP FOR SAFETY. CONTINUE TO MONITOR. CALL LIGHT WITHIN REACH.
[2017-07-30 20:00] VITALS: BP 116/54
--- NOTE | 2017-07-30 20:35 | NUR ---
MS/HYDROCRANE OPERATOR ; PT C/O GEN. PAIN. WANTS PAIN SHOT. BP 116 / 54. I TOLD THE PT THAT HIS BP KIND OF LOW I NEED TO RE CHECK IT LATER ON.
--- NOTE | 2017-07-30 21:00 | NUR ---
MS/DOOR SLINGER; COREG 25 MG PO Q12 NOT GIVEN , BP 102 / 59 .
--- NOTE | 2017-07-30 21:35 | NUR ---
MS/CAROUSEL ATTENDANT; PT CALLED AGAIN FOR PAIN SHOT. BP RE CHECKED LT ARM 102 / 59 . I TOLD AGAIN THE PT THAT I CAN'T GIVE THE PAIN SHOT BP STILL LOW. I OFFERED TYLENOL PO BUT REFUSED.
--- NOTE | 2017-07-30 22:45 | NUR ---
MS/INTERNET MARKETING INTERN; COLOSTOMY BAG WAS CHANGED.
--- NOTE | 2017-07-30 23:25 | NUR ---
MS/TAB CARD PRESS OPERATOR; BS 150 COVERED WITH REGULAR INSULIN 2UNITS SQ.
[2017-07-30] MEDS: NEOMY SULF/BACITRAC ZN/POLY 15 GM TUBE TP SCH (23:30)
--- NOTE | 2017-07-31 | NUR ---
MS/CORE MAN; PT CALLED AGAIN FOR PAIN SHOT. I RE CHECKED BP 94/ 60. I TOLD THE PT HIS BP STILL LOW. I ENC. PT TO TAKE MORE PO FLUIDS AND EAT. PT ASKED FOR APPLE JUICES AND CHING CRACKERS GIVEN.
[2017-07-31] MEDS: IPRATROPIUM NEB FS 0.5 MG/2.5 ML AMPUL.NEB NEB SCH ×4 (01:30→19:51)
--- NOTE | 2017-07-31 02:10 | NUR ---
MS/MEDICAL EQUIPMENT SALES; PT ASKED FOR PAIN SHOT AGAIN. BP 98/ 52 AND I INFORMED THE CHARGE NURSE AND SHE SAID HE CAN NOT HAVE PAIN SHOT BP IS LOW. HE CAN HAVE TYLENOL. SO I TOLD THE PT I CAN NOT GIVE THHE PAIN SHOT BP IS STILL LOW. AND I OFFERED HIM TYLENOL AGAIN AND HE AGREED THE TYLENOL. ALSO PT REFUSED HIS BREATHING TREATMENT PER RT.
--- NOTE | 2017-07-31 02:15 | NUR ---
MS/HYDROPONICS WORKER; TYLENOL 650 MG PO. TABS. Q6 PRN GIVEN.
[2017-07-31] MEDS: ACETAMINOPHEN 325 MG TABLET PO PRN (02:17)
--- NOTE | 2017-07-31 06:50 | NUR ---
MS/DIET TECHNICIAN REGISTERED; BS 161 COVERED WITH REGULAR INSULIN 3 UNITS SQ. SLEPT FAIRLY. WILL ENDORSE TO THE DAY SHIFT RN FOR CONTINUITY OF CARE.
[2017-07-31] MEDS: BLOOD SUGAR DIAGNOSTIC 1 EACH STRIP VI SCH ×4 (07:00→21:32)
[2017-07-31] MEDS: INSULIN REGULAR, HUMAN 100 UNIT/ML 3 ML VIAL SQ PRN ×3 (07:04→17:38)
--- NOTE | 2017-07-31 07:15 | NUR ---
MS RN NOTES PATIENT RECEIVED RESTING INSIDE ROOM, AWAKE, ALERT AND ORIENTED, VERBALLY RESPONSIVE AND RESPONDS TO VERBAL AND TACTILE STIMULI. ABLE TO MAKE NEEDS KNOWN AND FOLLOWS SIMPLE INSTRUCTIONS. BREATHING EVEN AND UNLABORED. NO SOB OR ACUTE DISTRESS NOTED. PATIENT CALM AND RELAXED. NO CHANGES IN LOC NOTED. IV SITE INTACT AND PATENT. LLE FLOATED WITH PILLOWS ON BED. WILL CONTINUE TO MONITOR. BED LOCKED AND IN LOW POSITION. BILATERAL UPPER SIDE RAILS UP AND LOCKED. CALL LIGHT WITHIN EASY REACH
[2017-07-31 07:42] LABS: BASOPHILS % (AUTO) 0.5 % (0.0-2.0); EOSINOPHILS % (AUTO) 3.3 % (0.0-6.0); HEMATOCRIT 38 % (39-51); HEMOGLOBIN 12.2 g/dL (13.5-17.5); LYMPHOCYTES % (AUTO) 11.1 % (20.0-44.0); MEAN CORPUSCULAR HEMOGLOBIN 29 PG (26.0-33.0); MEAN CORPUSCULAR HGB CONC 32 g/dl (31.0-36.0); MEAN CORPUSCULAR VOLUME 91 fL (80-96); MONOCYTES # (AUTO) 0.7 /CMM (0.1-1.30); MONOCYTES % (AUTO) 8.6 % (2.0-12.0); NEUTROPHILS # (AUTO) 6.5 /CMM (1.8-8.9); NEUTROPHILS % (AUTO) 76.5 % (43.0-81.0); PLATELET COUNT (AUTO) 171 /CMM (150-450); RDW COEFFICIENT OF VARIATION 18.5 (11.5-15.0); RED BLOOD CELL COUNT(AUTO) 4.16 MIL/uL (4.5-6.0); WHITE BLOOD COUNT (AUTO) 8.5 K/uL (4.3-11.0)
[2017-07-31 08:00] VITALS: BP 113/65
[2017-07-31 08:11] LABS: CALCIUM, SERUM 8.3 mg/dL (8.5-10.1); CREATININE 2.3 mg/dL (0.6-1.3); MAGNESIUM 2.1 mg/dL (1.8-2.4); POTASSIUM 4.5 mmol/L (3.5-5.1)
[2017-07-31] MEDS: PREGABALIN 25 MG CAPSULE PO SCH ×2 (08:52→17:39)
[2017-07-31] MEDS: ESCITALOPRAM OXALATE (10 MG) 10 MG TABLET PO SCH (08:52)
[2017-07-31] MEDS: ATORVASTATIN 10 MG TABLET PO SCH (08:52)
[2017-07-31] MEDS: PANTOPRAZOLE 40 MG TABLET.DR PO SCH (08:53)
[2017-07-31] MEDS: CARVEDILOL 12.5 MG TABLET PO SCH ×2 (08:53→21:00)
[2017-07-31] MEDS: RIVAROXABAN 15 MG TABLET PO SCH ×2 (08:55→17:39)
[2017-07-31] MEDS: HYDROGEL DRESSING 90 GM TUBE TP SCH (08:57)
[2017-07-31] MEDS: NEOMY SULF/BACITRAC ZN/POLY 15 GM TUBE TP SCH ×2 (08:59→17:40)
[2017-07-31] MEDS ORDERED: FUROSEMIDE 80 MG TABLET PO SCH (09:00)
[2017-07-31] MEDS ORDERED: HYDROCODONE/APAP 5/325MG 1 EACH TABLET PO PRN (11:30)
--- NOTE | 2017-07-31 11:30 | NUR ---
MS RN NOTES RECEIVED CALL FROM [facility] WITH REPORT OF LEFT FOOT WOUND CULTURE WITH POSITIVE RESULT FOR MRSA. PATIENT PLACED ON CONTACT ISOLATION PRECAUTION. CHARGE NURSE AWARE. NATALY KILPATRICK NP PRESENT AT UNIT AND MADE AWARE. PATIENT MADE AWARE AND VERBALIZED UNDERSTANDING. WILL CONTINUE TO MONITOR
[2017-07-31] MEDS: HYDROMORPHONE INJ 2 MG/ML DISP.SYRIN IV PRN ×2 (12:32→23:11)
[2017-07-31 12:35] VITALS: BP 115/66
[2017-07-31] MEDS: VANCOMYCIN 0.75 GM in IV D5W 250 ML IV SCH (14:00)
--- NOTE | 2017-07-31 14:00 | NUR ---
MS RN NOTES RECEIVED VANCO TROUGH RESULT WITH LEVEL OF 23. HELD VANCOMYCIN 2 VANCO TROUGH >20. PLACED CALL TO PHARMACY AND MADE AWARE. WILL CONTINUE TO MONITOR
[2017-07-31 15:58] VITALS: BP 110/82
--- NOTE | 2017-07-31 18:40 | NUR ---
MS RN NOTES PATIENT RESTING INSIDE ROOM, AWAKE, ALERT AND ORIENTED. VERBALLY RESPONSIVE AND RESPONDS TO VERBAL AND TACTILE STIMULI. BREATHING EVEN AND UNLABORED. NO SOB OR ACUTE DISTRESS NOTED. PATIENT CALM AND RELAXED. NO CHANGES IN LOC NOTED. MAINTAINED ISOLATION PRECAUTION. IV SITE INTACT AND PATENT, NO BLEEDING NOTED ON SITE. WILL ENDORSE TO INCOMING SHIFT. DUE MEDICATIONS GIVEN AND TOLERATED WELL. PROVIDED WITH CALM, SAFE, HAZARD-FREE ENVIRONMENT. CALL LIGHT WITHIN EASY
--- NOTE | 2017-07-31 19:41 | NUR ---
MS RN NOTES Patient received in bed, resting and easily arrousable. Verbally responsive. Patient is comfortable and not in any type of distress at this moment. IV site on right AC #18g: patent and intact. Contact isolation in place. Safety measures in place. Reminded patient to call for help for any assistance needed. Bed in lowest position with bed alarm and call light within reach. Will continue to monitor and assess patient. Addendum: 07/31/17 at 2001 by REENA PRESTON RN Ostomy site assess with no redness with no complaints of pain. Non-tender. Wound dressing on left lower extremity dry and intact.
[2017-07-31] MEDS: *INSULIN REGULAR(HUMULIN R)HUM 100 UNIT/ML VIAL SQ PRN (21:56)
[2017-08-01] MEDS: IPRATROPIUM NEB FS 0.5 MG/2.5 ML AMPUL.NEB NEB SCH ×4 (01:46→19:30)
[2017-08-01] MEDS: LORAZEPAM INJ 2 MG/ML VIAL IV PRN (03:20)
--- NOTE | 2017-08-01 03:24 | NUR ---
RN NOTES - Cargo Broker Ativan given for anxiety and severe agitation. Will reassess in one hour for effectiveness
--- NOTE | 2017-08-01 04:30 | NUR ---
MS RN - Reassessment notes Patient is asleep, easily arousable. Safety measures in place. Will continue to monitor patient
--- NOTE | 2017-08-01 05:29 | NUR ---
MS RN CLOSING NOTES Patient currently in bed, resting, easily arousable. Wound treatment rendered. Updated pictures taken and placed in chart. Not in any type of distress at this moment. Remained on contact isolation for MRSA of the wound. All needs anticipated provided and met. Colostomy site monitored with no redness noted; non-tender. No chest pain noted or reported. Safety measures in place. Bed in lowest position with bed alarm on and call light within reach. Will endorse to oncoming shift nurse.
[2017-08-01] MEDS: BLOOD SUGAR DIAGNOSTIC 1 EACH STRIP VI SCH ×4 (06:49→21:52)
[2017-08-01] MEDS: INSULIN REGULAR, HUMAN 100 UNIT/ML 3 ML VIAL SQ PRN ×3 (06:50→16:47)
--- NOTE | 2017-08-01 07:10 | NUR ---
WOUND CARE CONSULT WOUND CARE RECEIVED CONSULT FOR LEFT LATERAL FLANK REDNESS AND RASHES. WOUND CARE WILL DEFER CONSULT AND TREATMENT PLAN TO SURGICAL TEAM WHO ARE CURRENTLY FOLLOWING PATIENT. WILL SEEN PRN.
[2017-08-01 07:11] LABS: ALBUMIN 2.5 g/dL (3.4-5.0); BILIRUBIN,TOTAL 0.6 mg/dL (0.2-1.0); CALCIUM, SERUM 8.2 mg/dL (8.5-10.1); CREATININE 2.2 mg/dL (0.6-1.3); PHOSPHORUS 4.6 mg/dL (2.5-4.9); POTASSIUM 4.6 mmol/L (3.5-5.1); TOTAL PROTEIN, SERUM 6.1 g/dL (6.4-8.2)
[2017-08-01 07:12] LABS: BASOPHILS % (AUTO) 0.3 % (0.0-2.0); EOSINOPHILS % (AUTO) 5.4 % (0.0-6.0); HEMATOCRIT 39 % (39-51); HEMOGLOBIN 12.6 g/dL (13.5-17.5); LYMPHOCYTES # (AUTO) 0.9 /CMM (0.8-4.8); LYMPHOCYTES % (AUTO) 12.9 % (20.0-44.0); MEAN CORPUSCULAR HEMOGLOBIN 29 PG (26.0-33.0); MEAN CORPUSCULAR HGB CONC 32 g/dl (31.0-36.0); MEAN CORPUSCULAR VOLUME 91 fL (80-96); MONOCYTES # (AUTO) 0.6 /CMM (0.1-1.30); MONOCYTES % (AUTO) 8.4 % (2.0-12.0); NEUTROPHILS # (AUTO) 5.1 /CMM (1.8-8.9); PLATELET COUNT (AUTO) 154 /CMM (150-450); RDW COEFFICIENT OF VARIATION 17.6 (11.5-15.0)
[2017-08-01 07:48] LABS: INR 1.54 (0.87-1.13)
--- NOTE | 2017-08-01 07:53 | NUR ---
MS RN NOTES PATIENT IN BED RESTING NO SOB OR ACUTE DISTRESS NOTED. PATIENT ALERT, ORIENTED X3. PERIPHERAL IV INTACT PATENT. BED IN LOW LOCKED POSITION. CALL LIGHT WITHIN REACH. WILL CONTINUE TO MONITOR.
[2017-08-01 08:00] VITALS: BP 115/64
[2017-08-01] MEDS ORDERED: VANCOMYCIN 0.75 GM in IV D5W 250 ML IV SCH (08:00)
[2017-08-01] MEDS: PREGABALIN 25 MG CAPSULE PO SCH ×2 (08:15→16:50)
[2017-08-01] MEDS: RIVAROXABAN 15 MG TABLET PO SCH ×2 (08:15→16:50)
[2017-08-01] MEDS: CARVEDILOL 12.5 MG TABLET PO SCH ×2 (08:16→21:00)
[2017-08-01] MEDS: PANTOPRAZOLE 40 MG TABLET.DR PO SCH (08:17)
[2017-08-01] MEDS: RIFAMPIN 300 MG CAPSULE PO SCH (08:17)
[2017-08-01] MEDS: ESCITALOPRAM OXALATE (10 MG) 10 MG TABLET PO SCH (08:17)
[2017-08-01] MEDS: ATORVASTATIN 10 MG TABLET PO SCH (08:17)
[2017-08-01] MEDS: NEOMY SULF/BACITRAC ZN/POLY 15 GM TUBE TP SCH ×2 (08:19→16:51)
[2017-08-01] MEDS: HYDROGEL DRESSING 90 GM TUBE TP SCH (08:19)
[2017-08-01] MEDS: FUROSEMIDE 80 MG TABLET PO SCH (08:32)
[2017-08-01] MEDS: VANCOMYCIN 1 GM in IV D5W 250 ML IV SCH (09:17)
--- NOTE | 2017-08-01 11:10 | NUR ---
MS RN NOTED PATIENT SEEN AND EVALUATED BY NATALY. EVALUATED HIS RASH WHICH WAS NOTED LAST NIGHT. DEFERRED TO ID TO EVALUATE. NOTED AND CARRIED OUT.
--- NOTE | 2017-08-01 14:30 | NUR ---
MS RN NOTES PATIENT SEEN AND EVALUATED BY DR. WORTHINGTON AND HECTOR TURCIOS. ORDERS TO APPLY BENADRYL CREAM NEEDED TO EFFECTED AREA.
[2017-08-01 16:00] VITALS: BP 97/63
[2017-08-01 17:00] VITALS: BP 122/68
[2017-08-01] MEDS ORDERED: diphenhydrAMINE HCL/ZINC ACET CREAM 28.3 GM TUBE TP PRN (17:30)
[2017-08-01] MEDS: HYDROMORPHONE INJ 2 MG/ML DISP.SYRIN IV PRN (18:15)
--- NOTE | 2017-08-01 18:59 | NUR ---
MS RN NOTES PATIENT IN BED RESTING NO SOB OR ACUTE DISTRESS NOTED. ALL DUE MEDICATIONS ADMINISTERED. ALL NEEDS MET. PERIPHERAL IV INTACT PATENT. WILL ENDORSE CARE TO PM SHIFT.
--- NOTE | 2017-08-01 19:10 | NUR ---
MSRN RECEIVED REPORT FROM OUTGOING RN. PATIENT FULLY AWAKE OF THIS TIME, ABLE TO RESPOND APPROPRIATELY WITH LIMITED BENGALI. PARTIALLY ASSESSED, COLOSTOMY FULL, CHANGED BY OUTGOING RN. NO OTHER DISCOMFORTS OF THIS TIME, TO CONTINUE.
[2017-08-01 19:49] VITALS: BP 97/55
[2017-08-01 20:00] VITALS: BP 97/55
--- NOTE | 2017-08-01 21:45 | NUR ---
MSRN VERBALIZES LEFT FOOT PAIN, WANTED DILAUDED. PAIN MGT EMPHASIZED, APPEARS TO UNDERSTAND. OFFERED NORCO 1 TAB AGREED, STATED LEFT FOOT HURTING. ADMINISTERED WITH APPLE JUICE. BS 137 PRIOR TO SNACK, 2 UNITS OF REGULAR INSULIN SQ GIVEN. KEPT COMFORTRABLE.
[2017-08-01] MEDS: HYDROCODONE/APAP 10/325MG 1 EA TABLET PO PRN (21:48)
[2017-08-01] MEDS: *INSULIN REGULAR(HUMULIN R)HUM 100 UNIT/ML VIAL SQ PRN (21:50)
--- NOTE | 2017-08-01 22:05 | NUR ---
MSRN COREG NON ADMINISTERED BP 93/53 THIS TIME
--- NOTE | 2017-08-01 23:34 | NUR ---
MSRN HS CARE DONE, COLOSTOMY CHANGED.BENEDRYL CREAM APPLIED TO AFFECTED AREAS. SCROTUM ELEVATED ON TOWEL. REPOSITIONED
[2017-08-02] MEDS: IPRATROPIUM NEB FS 0.5 MG/2.5 ML AMPUL.NEB NEB SCH ×4 (00:46→20:18)
[2017-08-02] MEDS: HYDROMORPHONE INJ 2 MG/ML DISP.SYRIN IV PRN ×2 (05:59→17:33)
[2017-08-02] MEDS: BLOOD SUGAR DIAGNOSTIC 1 EACH STRIP VI SCH ×4 (05:59→21:19)
[2017-08-02] MEDS: INSULIN REGULAR, HUMAN 100 UNIT/ML 3 ML VIAL SQ PRN ×3 (06:06→17:22)
--- NOTE | 2017-08-02 06:34 | NUR ---
MSRN BS 173, COVERRED WITH 3 UNITS REGULAR INSULIN SQ PER SLIDING SCALE. INSISTED TO HAVE APPLE JUICE PRIOR TO ACCUCHEK. VERBALIZES GEN PAIN BOBBI LEFT FOOT. DILAUDED 1MG IVP ADMINISTERED.
[2017-08-02 06:49] LABS: BASOPHILS % (AUTO) 0.5 % (0.0-2.0); EOSINOPHILS % (AUTO) 4.4 % (0.0-6.0); HEMATOCRIT 35 % (39-51); HEMOGLOBIN 11.6 g/dL (13.5-17.5); LYMPHOCYTES # (AUTO) 1.1 /CMM (0.8-4.8); LYMPHOCYTES % (AUTO) 16.9 % (20.0-44.0); MEAN CORPUSCULAR HEMOGLOBIN 30 PG (26.0-33.0); MEAN CORPUSCULAR HGB CONC 33 g/dl (31.0-36.0); MEAN CORPUSCULAR VOLUME 91 fL (80-96); MONOCYTES # (AUTO) 0.7 /CMM (0.1-1.30); NEUTROPHILS # (AUTO) 4.5 /CMM (1.8-8.9); NEUTROPHILS % (AUTO) 68.2 % (43.0-81.0); PLATELET COUNT (AUTO) 151 /CMM (150-450); RDW COEFFICIENT OF VARIATION 18.1 (11.5-15.0); RED BLOOD CELL COUNT(AUTO) 3.88 MIL/uL (4.5-6.0); WHITE BLOOD COUNT (AUTO) 6.6 K/uL (4.3-11.0)
[2017-08-02 07:15] LABS: CALCIUM, SERUM 8.2 mg/dL (8.5-10.1); MAGNESIUM 2.1 mg/dL (1.8-2.4); PHOSPHORUS 4.4 mg/dL (2.5-4.9); POTASSIUM 4.8 mmol/L (3.5-5.1)
[2017-08-02 08:00] VITALS: BP 95/55
[2017-08-02] MEDS: CARVEDILOL 12.5 MG TABLET PO SCH ×2 (08:15→21:19)
[2017-08-02] MEDS: FUROSEMIDE 80 MG TABLET PO SCH (09:21)
[2017-08-02] MEDS: ATORVASTATIN 10 MG TABLET PO SCH (09:22)
[2017-08-02] MEDS: RIVAROXABAN 15 MG TABLET PO SCH ×2 (09:22→16:36)
[2017-08-02] MEDS: ESCITALOPRAM OXALATE (10 MG) 10 MG TABLET PO SCH (09:22)
[2017-08-02] MEDS: PANTOPRAZOLE 40 MG TABLET.DR PO SCH (09:22)
[2017-08-02] MEDS: PREGABALIN 25 MG CAPSULE PO SCH ×2 (09:22→16:36)
[2017-08-02] MEDS: RIFAMPIN 300 MG CAPSULE PO SCH (09:22)
[2017-08-02] MEDS: NEOMY SULF/BACITRAC ZN/POLY 15 GM TUBE TP SCH ×2 (09:26→16:39)
[2017-08-02] MEDS: HYDROGEL DRESSING 90 GM TUBE TP SCH (09:26)
--- NOTE | 2017-08-02 10:31 | NUR ---
m/s woodworking shop hand: notes dr. arechiga here and informed md that pt needs a picc line prior to d'c for iv vancomycinx8 weeks. pt aware. cn and rn carbon electrodes supervisor made aware. for d'c planning.
--- NOTE | 2017-08-02 12:05 | NUR ---
m/s wellness program coordinator: notes bs check 143, pt refused coverage, stated, "let's check later." instructed to call for assistance. will continue to monitor.
--- NOTE | 2017-08-02 13:10 | NUR ---
m/s electronic equipment installer: notes colostomy care rendered.
--- NOTE | 2017-08-02 14:00 | NUR ---
m/s sales order administrator: notes manuel ([email or web address]) at bedside and discussing plan of care. pt will call son to call manuel re: placement.
[2017-08-02 16:00] VITALS: BP 106/67
--- NOTE | 2017-08-02 17:33 | NUR ---
m/s supply chain procurement manager: notes c/o 09/23 left foot pain, medicated with dilaudid 1mg ivp by rn. instructed to call for assistance. will continue to monitor.
--- NOTE | 2017-08-02 18:03 | NUR ---
m/s medical director/head team physician: notes pt verbalized relief of pain. family at bedside. will continue to monitor.
[2017-08-02 20:37] VITALS: BP 107/62
[2017-08-02] MEDS: VANCOMYCIN 1 GM in IV D5W 250 ML IV SCH (21:18)
--- NOTE | 2017-08-02 21:35 | NUR ---
MSRN BS WAS 126. NO COVERAGE. SNACKS PROVIDED ATE 100%. KEPT COMFORTABLE
[2017-08-02] MEDS: HYDROCODONE/APAP 10/325MG 1 EA TABLET PO PRN (23:15)
--- NOTE | 2017-08-02 23:24 | NUR ---
MSRN LEFT FOOT PAIN, NORCO 10/325 PO 1 TAB ADMINISTERED.
[2017-08-03] MEDS: HYDROMORPHONE INJ 2 MG/ML DISP.SYRIN IV PRN ×3 (00:53→17:43)
--- NOTE | 2017-08-03 00:55 | NUR ---
MSRN NO RELIEF FROM NORCO PER PATIENT. DILAUDED 1MG IVP ADMINISTERED. REPOSTIONED FOR COMFORT.
[2017-08-03] MEDS: IPRATROPIUM NEB FS 0.5 MG/2.5 ML AMPUL.NEB NEB SCH ×5 (01:30→19:30)
[2017-08-03] MEDS: INSULIN REGULAR, HUMAN 100 UNIT/ML 3 ML VIAL SQ PRN ×2 (06:53→17:41)
[2017-08-03] MEDS: BLOOD SUGAR DIAGNOSTIC 1 EACH STRIP VI SCH ×4 (06:54→21:53)
--- NOTE | 2017-08-03 07:00 | NUR ---
msrn bs was 222, 6 units reg ins sq given.
[2017-08-03 07:28] LABS: BASOPHILS % (AUTO) 0.7 % (0.0-2.0); HEMATOCRIT 35 % (39-51); HEMOGLOBIN 11.5 g/dL (13.5-17.5); LYMPHOCYTES # (AUTO) 1.2 /CMM (0.8-4.8); LYMPHOCYTES % (AUTO) 19.6 % (20.0-44.0); MEAN CORPUSCULAR HEMOGLOBIN 30 PG (26.0-33.0); MEAN CORPUSCULAR HGB CONC 33 g/dl (31.0-36.0); MEAN CORPUSCULAR VOLUME 90 fL (80-96); MONOCYTES # (AUTO) 0.7 /CMM (0.1-1.30); MONOCYTES % (AUTO) 11.4 % (2.0-12.0); NEUTROPHILS % (AUTO) 64.3 % (43.0-81.0); PLATELET COUNT (AUTO) 140 /CMM (150-450); RDW COEFFICIENT OF VARIATION 17.6 (11.5-15.0); RED BLOOD CELL COUNT(AUTO) 3.91 MIL/uL (4.5-6.0); WHITE BLOOD COUNT (AUTO) 6.3 K/uL (4.3-11.0)
[2017-08-03 08:00] VITALS: BP 101/54
--- NOTE | 2017-08-03 08:00 | NUR ---
MS RN RECEIVED ON BED,AWAKE,ALERT,ORIENTED X4,NOT IN ANY FORM OF DISTRESS,RESPIRATIONS EVEN AND UNLABORED,NO SOB NOTED, LUNGS ARE DIMINISHED, ABDOMEN SOFT,POSITIVE BOWEL SOUNDS, DENIES PAIN AT THIS TIME, WILL MONITOR PATIENT'S CONDITION.
[2017-08-03 08:04] LABS: ALBUMIN 2.3 g/dL (3.4-5.0); BILIRUBIN,TOTAL 0.6 mg/dL (0.2-1.0); CREATININE 1.8 mg/dL (0.6-1.3); MAGNESIUM 1.9 mg/dL (1.8-2.4); PHOSPHORUS 3.8 mg/dL (2.5-4.9); TOTAL PROTEIN, SERUM 5.6 g/dL (6.4-8.2)
[2017-08-03] MEDS: CARVEDILOL 12.5 MG TABLET PO SCH ×2 (09:00→21:51)
[2017-08-03] MEDS: ESCITALOPRAM OXALATE (10 MG) 10 MG TABLET PO SCH (09:14)
[2017-08-03] MEDS: FUROSEMIDE 80 MG TABLET PO SCH (09:14)
[2017-08-03] MEDS: ATORVASTATIN 10 MG TABLET PO SCH (09:14)
[2017-08-03] MEDS: PREGABALIN 25 MG CAPSULE PO SCH (09:15)
[2017-08-03] MEDS: RIFAMPIN 300 MG CAPSULE PO SCH (09:15)
[2017-08-03] MEDS: RIVAROXABAN 15 MG TABLET PO SCH ×2 (09:18→17:38)
--- NOTE | 2017-08-03 10:00 | NUR ---
MS RN WAS SEEN BY DR. MARCELO Castillo/ ORDERS MADE AND CARRIED OUT.
[2017-08-03] MEDS: PANTOPRAZOLE 40 MG TABLET.DR PO SCH (12:27)
[2017-08-03] MEDS: HYDROGEL DRESSING 90 GM TUBE TP SCH (12:28)
[2017-08-03] MEDS: NEOMY SULF/BACITRAC ZN/POLY 15 GM TUBE TP SCH ×2 (12:29→17:44)
[2017-08-03 16:00] VITALS: BP 139/72
[2017-08-03] MEDS: HYDROCODONE/APAP 10/325MG 1 EA TABLET PO PRN (16:22)
--- NOTE | 2017-08-03 16:30 | NUR ---
MS RN PICC LINE DONE,ALL NEEDS ATTENDED.
[2017-08-03] MEDS: PREGABALIN 100 MG CAPSULE PO SCH (17:38)
--- NOTE | 2017-08-03 19:20 | NUR ---
MS RN NOTES RECEIVED PT IN BED, AWAKE, A/0 X 3, VERBALLY RESPONSIVE. NO DISTRESS, NO SOB NOTED. RESPIRATION IS EVEN AND UNLABORED. IV SITE ON RIGHT WRIST AND RASHAWN PICC LINE INTACT AND PATENT. NO S/S OF INFILTRATION NOTED. NO S/S OF HYPO/ HYPERGLYCEMIA NOTED. NO C/O PAIN OR DISCOMFORT AT THIS TIME. SAFETY PRECAUTIONS OBSERVED. CALL LIGHT WITHIN REACH. WILL CONT TO MONITOR.
[2017-08-03 20:00] VITALS: BP 133/87
[2017-08-03] MEDS: *INSULIN REGULAR(HUMULIN R)HUM 100 UNIT/ML VIAL SQ PRN (21:56)
[2017-08-04] MEDS: IPRATROPIUM NEB FS 0.5 MG/2.5 ML AMPUL.NEB NEB SCH ×4 (01:30→20:09)
[2017-08-04] MEDS: HYDROMORPHONE INJ 2 MG/ML DISP.SYRIN IV PRN ×3 (02:03→16:05)
--- NOTE | 2017-08-04 06:05 | NUR ---
pt is a/o x 3 verbally responsive. refused to be cleaned / morning care and linen change risk and benefits explained, pt still refused x 3. will endorse to next shift accordingly.
[2017-08-04] MEDS: BLOOD SUGAR DIAGNOSTIC 1 EACH STRIP VI SCH ×4 (06:07→21:21)
[2017-08-04 06:36] LABS: BASOPHILS % (AUTO) 0.6 % (0.0-2.0); EOSINOPHILS % (AUTO) 4.6 % (0.0-6.0); HEMATOCRIT 36 % (39-51); HEMOGLOBIN 11.5 g/dL (13.5-17.5); LYMPHOCYTES # (AUTO) 1.4 /CMM (0.8-4.8); LYMPHOCYTES % (AUTO) 19.2 % (20.0-44.0); MEAN CORPUSCULAR HEMOGLOBIN 30 PG (26.0-33.0); MEAN CORPUSCULAR HGB CONC 32 g/dl (31.0-36.0); MEAN CORPUSCULAR VOLUME 91 fL (80-96); MONOCYTES # (AUTO) 0.9 /CMM (0.1-1.30); MONOCYTES % (AUTO) 13.2 % (2.0-12.0); NEUTROPHILS # (AUTO) 4.4 /CMM (1.8-8.9); NEUTROPHILS % (AUTO) 62.4 % (43.0-81.0); PLATELET COUNT (AUTO) 142 /CMM (150-450); RDW COEFFICIENT OF VARIATION 17.7 (11.5-15.0); RED BLOOD CELL COUNT(AUTO) 3.91 MIL/uL (4.5-6.0); WHITE BLOOD COUNT (AUTO) 7.1 K/uL (4.3-11.0)
--- NOTE | 2017-08-04 06:39 | NUR ---
MS RN NOTES PT IN BED, RESTING COMFORTABLY AT THIS TIME, AROUSES EASILY. A/0 X 3, VERBALLY RESPONSIVE. NO DISTRESS, NO SOB NOTED. RESPIRATION IS EVEN AND UNLABORED. IV SITE ON RIGHT WRIST AND RASHAWN PICC LINE INTACT AND PATENT. NO S/S OF INFILTRATION NOTED. NO S/S OF HYPO/ HYPERGLYCEMIA NOTED. NO C/O PAIN OR DISCOMFORT AT THIS TIME. SAFETY PRECAUTIONS OBSERVED. CALL LIGHT WITHIN REACH. WILL ENDORSE TO NEXT SHIFT ACCORDINGLY.
[2017-08-04 06:50] LABS: CALCIUM, SERUM 8.2 mg/dL (8.5-10.1); CREATININE 1.7 mg/dL (0.6-1.3); MAGNESIUM 1.8 mg/dL (1.8-2.4); PHOSPHORUS 3.5 mg/dL (2.5-4.9); POTASSIUM 4.6 mmol/L (3.5-5.1)
[2017-08-04 08:00] VITALS: BP 106/62
--- NOTE | 2017-08-04 08:00 | NUR ---
MS RN RECEIVED ON BED, AWAKE,ALERT,ORIENTED X3,NOT IN ANY FORM OF DISTRESS,RESPIRATIONS EVEN AND UNLABORED,NO SOB NOTED, LUNGS ARE CLEAR,ABDOMEN SOFT,POSITIVE BOWEL SOUNDS,DENIES PAIN AT THIS TIME,ALL NEEDS ATTENDED
[2017-08-04] MEDS: PANTOPRAZOLE 40 MG TABLET.DR PO SCH (08:26)
[2017-08-04] MEDS: PREGABALIN 100 MG CAPSULE PO SCH ×2 (08:26→16:04)
[2017-08-04] MEDS: FUROSEMIDE 80 MG TABLET PO SCH (08:26)
[2017-08-04] MEDS: ESCITALOPRAM OXALATE (10 MG) 10 MG TABLET PO SCH (08:26)
[2017-08-04] MEDS: RIFAMPIN 300 MG CAPSULE PO SCH (08:26)
[2017-08-04] MEDS: ATORVASTATIN 10 MG TABLET PO SCH (08:27)
[2017-08-04] MEDS: VANCOMYCIN 1 GM in IV D5W 250 ML IV SCH (08:29)
[2017-08-04] MEDS: RIVAROXABAN 15 MG TABLET PO SCH ×2 (08:37→16:04)
[2017-08-04] MEDS: CARVEDILOL 12.5 MG TABLET PO SCH ×2 (09:00→21:21)
--- NOTE | 2017-08-04 09:00 | NUR ---
MS RN 'BREAKFAST SERVED,DUE MEDS GIVEN,TOLERATED WELL.
[2017-08-04] MEDS ORDERED: RIFA300C2 PO (10:41)
[2017-08-04] MEDS ORDERED: PREG100C PO (10:41)
[2017-08-04] MEDS ORDERED: ATOR10TA PO (10:41)
[2017-08-04] MEDS ORDERED: NEOM15OI3 TP (10:41)
[2017-08-04] MEDS ORDERED: Rivaroxaban PO (10:41)
[2017-08-04] MEDS ORDERED: VANC1PLA10 IV (10:42)
--- NOTE | 2017-08-04 11:00 | NUR ---
ms rn was seen by dr. hawk frankel/ orders made and carried out, to go to snf today.
--- NOTE | 2017-08-04 12:00 | NUR ---
ms payne bs - 242 - 6 units of regular insulin given sq.
[2017-08-04] MEDS: HYDROGEL DRESSING 90 GM TUBE TP SCH (12:30)
[2017-08-04] MEDS: NEOMY SULF/BACITRAC ZN/POLY 15 GM TUBE TP SCH ×2 (12:30→16:05)
[2017-08-04] MEDS: INSULIN REGULAR, HUMAN 100 UNIT/ML 3 ML VIAL SQ PRN ×2 (12:33→17:32)
[2017-08-04] MEDS: HYDROCODONE/APAP 10/325MG 1 EA TABLET PO PRN (12:35)
--- NOTE | 2017-08-04 15:02 | NUR ---
RECEIVED ENDORSEMENT FROM RN, PT COMFORTABLE, ALL NEEDS MET AT THIS TIME.
[2017-08-04 16:00] VITALS: BP 106/62
--- NOTE | 2017-08-04 19:21 | NUR ---
MS RN OPENING NOTE RECEIVE PATIENT SLEEPING IN BED, A/O X 3 NO FACIAL GRIMACING NOTED FOR PAIN. NO SOB OR DISTRESS NOTED, CALL LIGHT WITHIN REACH. SAFETY MEASURES IMPLEMENTED. WILL CONTINUE TO MONITOR THROUGHOUT SHIFT.
[2017-08-04] MEDS: LORAZEPAM INJ 2 MG/ML VIAL IV PRN (19:35)
[2017-08-04 20:00] VITALS: BP 120/71
--- NOTE | 2017-08-04 20:30 | NUR ---
MS RN NOTES PT REMAINS CALM NOT IN DISTRESS VS STABLE
[2017-08-04] MEDS: *INSULIN REGULAR(HUMULIN R)HUM 100 UNIT/ML VIAL SQ PRN (21:22)
[2017-08-05] MEDS: IPRATROPIUM NEB FS 0.5 MG/2.5 ML AMPUL.NEB NEB SCH ×5 (01:30→19:27)
[2017-08-05] MEDS: BLOOD SUGAR DIAGNOSTIC 1 EACH STRIP VI SCH ×4 (05:52→21:32)
[2017-08-05] MEDS: INSULIN REGULAR, HUMAN 100 UNIT/ML 3 ML VIAL SQ PRN ×3 (05:53→17:28)
--- NOTE | 2017-08-05 06:36 | NUR ---
MS RN CLOSING NOTES PT COMFORTABLY ASLEEP AND EASILY AWAKEN, IN STABLE CONDITION. RESPIRATION EVEN AND UNLABORED. KEPT CLEAN AND DRY AND COMFORTABLE, ALL NURSING CARE RENDERED. NEEDS ATTENDED AND ANTICIPATED, GOOD SKIN CARE PROVIDED. FREQUENT VISUAL CHECK DONE FOR SAFETY EVERY 2 HOURS. ON LOW BED AT ALL TIMES TO ENSURE SAFETY. SAFE HAZARD FREE ENVIRONMENT PROVIDED. NO COMPLAINS OF PAIN. ASSIST REPOSITION EVERY 2 HOURS. CALL LIGHT WITHIN EASY TO REACH. WILL ENDORSE NEXT SHIFT CONTINUITY OF CARE.
--- NOTE | 2017-08-05 07:16 | NUR ---
MS RN OPENING NOTES PT RECEIVED ASLEEP IN BED, EASILY AROUSABLE. NO APPARENT DISTRESS NOTED. A/0 X 3, VERBALLY RESPONSIVE, DENIES PAIN OR DISCOMFORTS AT THIS TIME. ON 02 VIA N/C @ 2LPM, RESPIRATION EVEN AND UNLABORED. IV SITE ON RIGHT WRIST AND RASHAWN PICC LINE INTACT AND PATENT, NO S/S OF INFILTRATION NOTED. SAFETY PRECAUTIONS IN PLACE. HOB ELEVATED. BED IN LOW/LOCKED POSITION WITH SIDE-RAILS UP APPROPRIATE. CALL LIGHT WITHIN REACH. WILL CONTINUE TO MONITOR.
[2017-08-05 07:18] LABS: CALCIUM, SERUM 8.6 mg/dL (8.5-10.1); CREATININE 1.5 mg/dL (0.6-1.3); POTASSIUM 4.8 mmol/L (3.5-5.1)
[2017-08-05] MEDS: PANTOPRAZOLE 40 MG TABLET.DR PO SCH (07:29)
[2017-08-05 08:51] VITALS: BP 124/67
[2017-08-05] MEDS: RIFAMPIN 300 MG CAPSULE PO SCH (08:51)
[2017-08-05] MEDS: FUROSEMIDE 80 MG TABLET PO SCH (08:52)
[2017-08-05] MEDS: ESCITALOPRAM OXALATE (10 MG) 10 MG TABLET PO SCH (08:52)
[2017-08-05] MEDS: ATORVASTATIN 10 MG TABLET PO SCH (08:52)
[2017-08-05] MEDS: CARVEDILOL 12.5 MG TABLET PO SCH ×2 (08:52→21:00)
[2017-08-05] MEDS: PREGABALIN 100 MG CAPSULE PO SCH ×2 (08:52→17:21)
[2017-08-05] MEDS: RIVAROXABAN 15 MG TABLET PO SCH ×2 (08:55→17:22)
[2017-08-05] MEDS: NEOMY SULF/BACITRAC ZN/POLY 15 GM TUBE TP SCH ×2 (08:57→17:21)
[2017-08-05] MEDS: HYDROGEL DRESSING 90 GM TUBE TP SCH (08:58)
[2017-08-05] MEDS: HYDROCODONE/APAP 10/325MG 1 EA TABLET PO PRN (09:22)
--- NOTE | 2017-08-05 09:24 | NUR ---
RN NOTES PT NOTED SHOUTING, MOANING AND HAVING FACIAL GRIMACING. WENT TO CHECK AND PT C/O GENERALIZED PAIN WITH INTENSITY OF 10/10. PRN NORCO 10/325 TAB GIVEN. WILL CONTINUE TO MONITOR.
[2017-08-05] MEDS: HYDROMORPHONE INJ 2 MG/ML DISP.SYRIN IV PRN ×2 (10:01→20:23)
--- NOTE | 2017-08-05 10:01 | NUR ---
RN NOTES PATIENT PRESSED CALL LIGHT AND WAS CHECKED IMMEDIATELY. PATIENT STATED THAT HE'S STILL IN PAIN WITH INTENSITY OF 8/10. EXPLAINED THAT I JUST GAVE THE NORCO 10/325 MG 30MINS AGO BUT HE SAID THAT THE NORCO DIDN'T HELP HIM RELIEVE WITH THE PAIN, HE THEN INSISTED THE DILAUDID 1MG TO BE GIVEN BECAUSE HE'S REALLY IN PAIN AND THAT ONLY DILAUDID CAN HELP HIM. PRN DILAUDID 1MG IVP GIVEN. WILL CONTINUE TO MONITOR.
[2017-08-05 16:27] VITALS: BP 107/69
--- NOTE | 2017-08-05 18:40 | NUR ---
MS RN CLOSING NOTES PATIENT AWAKE AND RESTING IN BED WATCHING TV AT THIS TIME. HOB ELEVATED. A/O X3, SAME ABLE TO MAKE NEEDS KNOWN. PT ON SUPPLEMENTAL 02 VIA N/C @ 2LPM, TOLERATING WELL WITH NO SOB NOTED. IV ACCESS ON RIGHT WRIST AND RASHAWN DOUBLE LUMEN PICC LINE BOTH INTACT AND PATENT, NO BLEEDING OR S/S OF INFILTRATION NOTED. ALL SAFETY PRECAUTIONS IN PLACE. BED IN LOW/LOCKED POSITION WITH SIDE-RAILS UP X3. BED ALARM ON. CALL LIGHT AND BEDSIDE TABLE WITHIN EASY REACH OF PT. ALL NEEDS AND CARE PROVIDED WELL. WILL ENDORSE TO TREASURY ASSOCIATE NURSE FOR CONTINUITY OF CARE
--- NOTE | 2017-08-05 19:00 | NUR ---
MS RN OPENING NOTE RECEIVE PATIENT AWAKE IN BED, A/O X 3 NO FACIAL GRIMACING NOTED FOR PAIN. NO SOB OR DISTRESS NOTED, CALL LIGHT WITHIN REACH. SAFETY MEASURES IMPLEMENTED. WILL CONTINUE TO MONITOR THROUGHOUT SHIFT.
[2017-08-05 20:00] VITALS: BP 103/71
[2017-08-05] MEDS: VANCOMYCIN 1 GM in IV D5W 250 ML IV SCH (20:32)
[2017-08-05] MEDS: *INSULIN REGULAR(HUMULIN R)HUM 100 UNIT/ML VIAL SQ PRN (21:35)
[2017-08-06] MEDS: IPRATROPIUM NEB FS 0.5 MG/2.5 ML AMPUL.NEB NEB SCH ×4 (01:30→19:30)
[2017-08-06 03:23] VITALS: BP 110/84
[2017-08-06] MEDS: HYDROMORPHONE INJ 2 MG/ML DISP.SYRIN IV PRN ×4 (03:23→22:06)
[2017-08-06] MEDS: BLOOD SUGAR DIAGNOSTIC 1 EACH STRIP VI SCH ×4 (05:39→21:49)
[2017-08-06] MEDS: INSULIN REGULAR, HUMAN 100 UNIT/ML 3 ML VIAL SQ PRN ×3 (05:39→17:53)
--- NOTE | 2017-08-06 06:10 | NUR ---
MS RN CLOSING NOTES PT COMFORTABLY ASLEEP AND EASILY AWAKEN, IN STABLE CONDITION. ON 2LPM VIA NC 02 SAT 98% RESPIRATION EVEN AND UNLABORED. TREATMENT ORDERED GOOD SKIN CARE PROVIDED. KEPT CLEAN AND DRY AND COMFORTABLE, ALL NURSING CARE RENDERED. NEEDS ATTENDED AND ANTICIPATED, FREQUENT VISUAL CHECK DONE FOR SAFETY EVERY 2 HOURS. ON LOW BED AT ALL TIMES TO ENSURE SAFETY. SAFE HAZARD FREE ENVIRONMENT PROVIDED. NO COMPLAINS OF PAIN AT THIS TIME. ASSISTED REPOSITION EVERY 2 HOURS. OFFLOAD HEELS AND ELBOWS. CALL LIGHT WITHIN EASY TO REACH. WILL ENDORSE NEXT SHIFT CONTINUITY OF CARE.
--- NOTE | 2017-08-06 07:20 | NUR ---
RN INITIAL NOTES: PATIENT RESTING IN BED. PATIENT AOX3. DENYING PAIN AT THE MOMENT. COLOSTOMY BAG INTACT. PICCLINE ON RIGHT UPPER ARM PATENT AND INTACT. BED IN LOWEST LOCKED POSITION. CALL LIGHT WITHIN REACH.
[2017-08-06 07:35] LABS: CALCIUM, SERUM 8.5 mg/dL (8.5-10.1); CREATININE 1.5 mg/dL (0.6-1.3); POTASSIUM 4.9 mmol/L (3.5-5.1)
[2017-08-06] MEDS: PANTOPRAZOLE 40 MG TABLET.DR PO SCH (08:16)
[2017-08-06] MEDS: RIVAROXABAN 15 MG TABLET PO SCH ×2 (08:51→17:52)
[2017-08-06] MEDS: ATORVASTATIN 10 MG TABLET PO SCH (08:52)
[2017-08-06] MEDS: RIFAMPIN 300 MG CAPSULE PO SCH (08:52)
[2017-08-06] MEDS: PREGABALIN 100 MG CAPSULE PO SCH ×2 (08:52→17:51)
[2017-08-06] MEDS: ESCITALOPRAM OXALATE (10 MG) 10 MG TABLET PO SCH (08:52)
[2017-08-06] MEDS: FUROSEMIDE 80 MG TABLET PO SCH (08:53)
[2017-08-06] MEDS: CARVEDILOL 12.5 MG TABLET PO SCH ×2 (09:00→21:49)
[2017-08-06] MEDS: NEOMY SULF/BACITRAC ZN/POLY 15 GM TUBE TP SCH ×2 (09:37→18:11)
[2017-08-06] MEDS: HYDROGEL DRESSING 90 GM TUBE TP SCH (09:38)
[2017-08-06 09:41] VITALS: BP 120/75
--- NOTE | 2017-08-06 12:51 | NUR ---
PAIN MANAGEMENT: DISCUSSED PAIN MANAGEMENT OPTIONS WITH PATIENT. EXPLAINED ORDERED MEDICATIONS. PATIENT REFUSING NORCO AND TYLENOL. REFUSING NON-PHARMACOLOGICAL OPTIONS WELL
--- NOTE | 2017-08-06 14:00 | NUR ---
RN NOTES: PICCLINE DRESSING CHANGED PER PROTOCOL. NO MEASUREMENT DIFFERENCE NOTED SINCE AM REPORT.
[2017-08-06 16:00] VITALS: BP 133/72
--- NOTE | 2017-08-06 18:50 | NUR ---
RN NOTES: NOTED RESISTANCE FROM 1 PORT OF PICCLINE. CONTACTED PICCLINE RN NATASHA. AWAITING RESPONSE
--- NOTE | 2017-08-06 18:53 | NUR ---
RN CLOSING NOTES: PATIENT RESTING IN BED. PATIENT AOX3. DENYING PAIN AT THE MOMENT. COLOSTOMY BAG INTACT, CHANGED DURING SHIFT. STOMA BRIGHT RED, X1 BM. . PICCLINE ON RIGHT UPPER ARM PATENT AND INTACT, DRESSING CHANGED. WOUND CARE DONE THROUGHOUT SHIFT. PATIENT EDUCATED REGRADING INFECTION CONTROL. REFUSING TO HAVE BED SHEETS CHANGED. EDUCATED REGARDING THAT AT LENGTH. NO CHEST PAIN REPORTED THROUGHOUT SHIFT. BED IN LOWEST LOCKED POSITION. CALL LIGHT WITHIN REACH. WILL ENDORSE TO NEXT SHIFT
--- NOTE | 2017-08-06 19:12 | NUR ---
MS RN OPENING NOTE RECEIVE PATIENT AWAKE IN BED, A/O X 3 STABLE CONDITION NO FACIAL GRIMACING NOTED FOR PAIN. NO SOB OR DISTRESS NOTED, CALL LIGHT WITHIN REACH. SAFETY MEASURES IMPLEMENTED. WILL CONTINUE TO MONITOR THROUGHOUT SHIFT.
[2017-08-06 20:00] VITALS: BP 133/74
--- NOTE | 2017-08-06 20:35 | NUR ---
ASSISTED PICCLINE NEO IYER WITH PICCLINE PROCEDURE. PATIENT CONSENTED TO PICCLINE REPLACEMENT. STAT XRAYS ORDERED TO ENSURE PLACEMENT PER ORDERS AND PER PROTOCOL. POST-INSERTION, PATIENT DENYING CHEST PAIN AND DENYING SHORTNESS OF BREATH. REPORT GIVEN TO DEXTER
[2017-08-06] MEDS: *INSULIN REGULAR(HUMULIN R)HUM 100 UNIT/ML VIAL SQ PRN (21:51)
[2017-08-07] MEDS: IPRATROPIUM NEB FS 0.5 MG/2.5 ML AMPUL.NEB NEB SCH ×4 (01:30→19:30)
[2017-08-07] MEDS: HYDROMORPHONE INJ 2 MG/ML DISP.SYRIN IV PRN ×3 (04:48→20:23)
[2017-08-07] MEDS: INSULIN REGULAR, HUMAN 100 UNIT/ML 3 ML VIAL SQ PRN ×3 (05:49→17:32)
[2017-08-07] MEDS: BLOOD SUGAR DIAGNOSTIC 1 EACH STRIP VI SCH ×4 (05:50→22:25)
--- NOTE | 2017-08-07 06:38 | NUR ---
MS RN CLOSING NOTES PT COMFORTABLY ASLEEP AND EASILY AWAKEN, IN STABLE CONDITION. ON 2LPM VIA NC 02 SAT 99% RESPIRATION EVEN AND UNLABORED. NO COMPLAIN OF PAIN, TREATMENT ORDERED GOOD SKIN CARE PROVIDED. KEPT CLEAN AND DRY AND COMFORTABLE, ALL NURSING CARE RENDERED. NEEDS ATTENDED AND ANTICIPATED, FREQUENT VISUAL CHECK DONE FOR SAFETY EVERY 2 HOURS. ON LOW BED AT ALL TIMES TO ENSURE SAFETY. SAFE HAZARD FREE ENVIRONMENT PROVIDED. ASSISTED REPOSITION EVERY 2 HOURS. OFFLOAD HEELS AND ELBOWS. CALL LIGHT WITHIN EASY TO REACH. WILL ENDORSE NEXT SHIFT CONTINUITY OF CARE.
[2017-08-07 07:51] LABS: CREATININE 1.3 mg/dL (0.6-1.3); POTASSIUM 4.8 mmol/L (3.5-5.1)
[2017-08-07 08:00] VITALS: BP 115/70
[2017-08-07] MEDS: RIVAROXABAN 15 MG TABLET PO SCH ×2 (09:02→16:25)
[2017-08-07] MEDS: RIFAMPIN 300 MG CAPSULE PO SCH (09:02)
[2017-08-07] MEDS: ESCITALOPRAM OXALATE (10 MG) 10 MG TABLET PO SCH (09:02)
[2017-08-07] MEDS: CARVEDILOL 12.5 MG TABLET PO SCH ×2 (09:03→20:23)
[2017-08-07] MEDS: FUROSEMIDE 80 MG TABLET PO SCH (09:03)
[2017-08-07] MEDS: PREGABALIN 100 MG CAPSULE PO SCH ×2 (09:03→16:25)
[2017-08-07] MEDS: ATORVASTATIN 10 MG TABLET PO SCH (09:03)
[2017-08-07] MEDS: PANTOPRAZOLE 40 MG TABLET.DR PO SCH (09:07)
[2017-08-07] MEDS: VANCOMYCIN 1 GM in IV D5W 250 ML IV SCH (09:55)
[2017-08-07] MEDS: HYDROGEL DRESSING 90 GM TUBE TP SCH (09:58)
[2017-08-07] MEDS: NEOMY SULF/BACITRAC ZN/POLY 15 GM TUBE TP SCH ×2 (09:59→16:28)
[2017-08-07 16:00] VITALS: BP 129/66
[2017-08-07] MEDS: LACTOBACILLUS RHAMNOSUS GG 1 EACH CAP.SPRINK PO SCH (16:24)
--- NOTE | 2017-08-07 18:32 | NUR ---
MS RN CLOSING NOTES PATIENT IN BED REMAINS STABLE, TOLERATED ROOM AIR WITH NO SHORTNESS OF BREATH. CONT HOSPITALIZATION PER MD. LEFT LOWER LEG, LEFT FOOT WOUND CARE, DRESSING CHANGED TODAY. PAIN MANAGED BY PRN DILAUDID 1MG IV WITH RELIEF. RASHAWN PICC LINE PATENT AND INTACT, FLUSHES WELL WITH GOOD BLOOD RETURN. GOOD APPETITE, VOIDED WITHOUT DIFFICULTY. TURN AND REPOSITION, CALL LIGHT WITHIN REACH. MAINTAINED CONTACT ISOLATION. AWAITING PLACEMENT, CM FOLLOWING. WILL ENDORSE TO ONCOMING RN.
--- NOTE | 2017-08-07 19:30 | NUR ---
MS RN OPENING NOTE Patient was seen lying in bed AAOx2, breathing on RA with no SOB, and no signs of acute distress. The lower left leg is bandaged; dressing is clean, dry, and intact. Patient has right AKA. PICC line is noted in the right upper arm; it is clean, dry, intact. Patient is requesting Dilaudid for pain; education was provided to patient regarding the frequency of each dose (q6h, next dose due at 2009). Bed is in the low/locked position, two side rails up, and call finley within reach. Will continue to monitor.
[2017-08-07 20:00] VITALS: BP 141/69
--- NOTE | 2017-08-07 20:23 | NUR ---
MS RN NOTE - Dilaudid Patient requested IV Dilaudid for 9/10 left leg pain. 1mg IV Dilaudid administered as ordered q6h. Additional note - Patient persistently asked that I give Dilaudid prior to the scheduled time and even stated that other nurses gave it to him earlier than scheduled. I educated the patient on the class of medication, potential side effects, and explained the importance of keeping the medication dosage within the ordered frequency, every six hours. I also explained that I could give PO Currie in between dosage times for additional pain control, if needed, but could not give IV Dilaudid before the next scheduled dose. The patient agreed to call me for Currie if his pain became too severe.
[2017-08-08] MEDS: IPRATROPIUM NEB FS 0.5 MG/2.5 ML AMPUL.NEB NEB SCH ×3 (01:07→12:56)
[2017-08-08] MEDS: HYDROCODONE/APAP 10/325MG 1 EA TABLET PO PRN (01:43)
--- NOTE | 2017-08-08 01:43 | NUR ---
MS NEO NOTE - Adams The patient called requesting pain medication for left lower leg pain at 09/23. The patient requested IV Dilaudid; I explained that it was a little too early to give Dilaudid. I gave the patient the choice between taking PO Adams now or waiting 40 minutes for next scheduled Dilaudid. I also explained that if I gave Adams now, I would want to wait an additional 2 hours before giving Dilaudid, so as not to give the pain meds too close together. The patient agreed to this. PO Adams 10/325mg was administered. Additional note - immediately after the patient took PO Adams, he stated that he "did not feel anything", and "it was not working". I explained that because it was a pill, it would take 30 minutes to an hour for him to feel the full effects and that it is normal to not feel anything immediately. The patient became agitated and demanded that I bring him Dilaudid. I explained that he would have to wait for the Dilaudid. The patient raised his voice at me, and said "just bring it to me early, I don't care, I won't tell anyone". I continued to explain to the patient that there could be serious side effects if I gave two pain medications "[id number]", and further explained that I could legally get into trouble. The patient continued to state "I don't care, I won't tell anyone you gave it to me, just give me my other pain medication". The patient continued to raise his voice and grow agitated, despite providing the patient with education. I told the patient that I would keep track of the time and be back with pain medication when the time was appropriate.
[2017-08-08] MEDS: HYDROMORPHONE INJ 2 MG/ML DISP.SYRIN IV PRN ×2 (03:15→15:32)
--- NOTE | 2017-08-08 03:15 | NUR ---
MS RN NOTE - Dilaudid Patient requested Dilaudid for 9/10 left foot pain. 1 mg IV Dilaudid given. Will continue to monitor.
[2017-08-08] MEDS: INSULIN REGULAR, HUMAN 100 UNIT/ML 3 ML VIAL SQ PRN ×2 (07:34→12:21)
[2017-08-08] MEDS: BLOOD SUGAR DIAGNOSTIC 1 EACH STRIP VI SCH ×2 (07:34→12:19)
--- NOTE | 2017-08-08 07:49 | NUR ---
MS RN CLOSING NOTE Patient is AAOx2, breathing on RA with no SOB, and no signs of acute distress. Left lower leg/foot dressings were changed and wound care provided this shift at 0530. PICC line in RASHAWN is intact, patent, and flushed. Patient did not sleep overnight, but had no events and remains in stable condition. Patient care endorsed to day shift RN.
[2017-08-08 08:00] VITALS: BP 113/72
[2017-08-08 08:30] LABS: CALCIUM, SERUM 8.7 mg/dL (8.5-10.1); CREATININE 1.4 mg/dL (0.6-1.3); POTASSIUM 4.9 mmol/L (3.5-5.1)
[2017-08-08] MEDS: RIFAMPIN 300 MG CAPSULE PO SCH (08:43)
[2017-08-08] MEDS: ESCITALOPRAM OXALATE (10 MG) 10 MG TABLET PO SCH (08:44)
[2017-08-08] MEDS: FUROSEMIDE 80 MG TABLET PO SCH (08:44)
[2017-08-08] MEDS: PREGABALIN 100 MG CAPSULE PO SCH (08:44)
[2017-08-08] MEDS: ATORVASTATIN 10 MG TABLET PO SCH (08:44)
[2017-08-08] MEDS: LACTOBACILLUS RHAMNOSUS GG 1 EACH CAP.SPRINK PO SCH (08:44)
--- NOTE | 2017-08-08 08:44 | NUR ---
MS RN NOTES PATIENT IN BED, AWAKE, A/O X3. BREAKFAST SERVED WITH GOOD APPETITE. TOLERATING ROOM AIR WITH NO SOB. LEFT LOWER LEG, LEFT FOOT DRESSING INTACT, OFFLOADED. LEFT FOOT PEDAL, POSTERIOR TIBIAL PULSES PALPABLE, CIRCULATION INTACT. RASHAWN PICC LINE PATENT AND INTACT, FLUSHES WELL WITH GOOD BLOOD RETURNED. MAINTAINED CONTACT ISOLATION. AWAITING PLACEMENT, CM FOLLOWING. WILL CONT TO MONITOR.
[2017-08-08] MEDS: PANTOPRAZOLE 40 MG TABLET.DR PO SCH (08:45)
[2017-08-08] MEDS: CARVEDILOL 12.5 MG TABLET PO SCH (08:45)
[2017-08-08] MEDS: RIVAROXABAN 15 MG TABLET PO SCH (08:47)
[2017-08-08] MEDS: HYDROGEL DRESSING 90 GM TUBE TP SCH (10:01)
[2017-08-08] MEDS: NEOMY SULF/BACITRAC ZN/POLY 15 GM TUBE TP SCH (10:01)
[2017-08-08 16:00] VITALS: BP 129/65
--- NOTE | 2017-08-08 16:30 | NUR ---
MS RN DISCHARGED PATIENT HAS BEEN CLEARED FOR DISCHARGE TO SNF BY . PATIENT REMAINS STABLE, GOOD APPETITE. TOLERATED ROOM AIR WITH NO SHORTNESS OF BREATH. COLOSTOMY INTACT, POUCH CHANGED. AFEBRILE DURING THE SHIFT. RASHAWN PICC LINE PATENT AND INTACT, FLUSHES WELL WITH GOOD BLOOD RETURNED. PICC LINE REMAINS IN PLACE UPON DC, TO BE USED FOR ANTIBIOTIC IV AT THE [facility]. CALLED [facility] SPOKE WITH NEO GILLIAM FOR REPORT. BELONGINGS CHECKED AND SEND WITH THE PATIENT UPON DC. PATIENT LEFT HOSP VIA AMBULANCE IN STABLE CONDITION.
== END 2017-08-08 16:15 | DRG 356 ==
LOC: TELE 22:45 → MED 07-29 07:48
PROVIDERS: ADMIT Nurse Practitioner Acute Care; ATTEND Nurse Practitioner Acute Care
PROC: 0JBR0ZZ Excision of Left Foot Subcutaneous Tissue and Fascia, Open Approach (ICD-10-PCS; principal; 2017-07-28)
PROC: 0JBP0ZZ Excision of Left Lower Leg Subcutaneous Tissue and Fascia, Open Approach (ICD-10-PCS; 2017-07-28)
DX: K94.02 Colostomy infection (principal); A41.9 Sepsis, unspecified organism; R65.20 Severe sepsis without septic shock; L03.311 Cellulitis of abdominal wall; I24.9 Acute ischemic heart disease, unspecified; I50.22 Chronic systolic (congestive) heart failure; I13.0 Hypertensive heart and chronic kidney disease with heart failure and stage 1 through stage 4 chronic kidney disease, or unspecified chronic kidney disease; N39.0 Urinary tract infection, site not specified; D68.59 Other primary thrombophilia; L03.116 Cellulitis of left lower limb; L97.829 Non-pressure chronic ulcer of other part of left lower leg with unspecified severity; Y83.3 Surgical operation with formation of external stoma as the cause of abnormal reaction of the patient, or of later complication, without mention of misadventure at the time of the procedure; Y82.9 Unspecified medical devices associated with adverse incidents; Y92.9 Unspecified place or not applicable; N18.9 Chronic kidney disease, unspecified; E11.51 Type 2 diabetes mellitus with diabetic peripheral angiopathy without gangrene; E11.42 Type 2 diabetes mellitus with diabetic polyneuropathy; E11.22 Type 2 diabetes mellitus with diabetic chronic kidney disease; E11.65 Type 2 diabetes mellitus with hyperglycemia; L89.899 Pressure ulcer of other site, unspecified stage; L97.529 Non-pressure chronic ulcer of other part of left foot with unspecified severity; E11.621 Type 2 diabetes mellitus with foot ulcer
CPT/HCPCS: 36415; 36569; 36600; 71045-TC; 73718-TC; 78582; 80048-TC; 80053-TC; 80061-TC; 80202-TC; 82248-TC; 82803-TC; 82962-TC; 83605-TC; 83735-TC; 84100-TC; 84439-TC; 84443-TC; 84484-TC; 85025-TC; 85610-TC; 85730-TC; 87070-TC; 87081-TC; 93307-TC; 93971-TC; 94799-TC; A4216; A4606; A6248; A6402; A6403; A9540; A9567; C1751; J0692; J1170; J1815; J1940; J2060; J2543; J3370; J3475; J7040; J7050; J7060; Z7610